=== PATIENT | female | born 1960 | race Caucasian/White ===

== ENCOUNTER 2017-11-03 02:18 | Emergency (ER) | payer OTHER, MEDICARE ==
[2017-11-03] MEDS ORDERED: Ketorolac 30 MG/ML SDV IM ONE (03:01)
--- NOTE | 2017-11-03 03:05 | EDM.PDOC ---
ED HPI GENERAL MEDICAL PROBLEM - General Chief Complaint: Back Pain or Injury Stated Complaint: BAD BACK PAIN AND INTO LEGS [id number] Time Seen by Provider: 11/03/17 02:59 Source of Information: Reports: Patient History Limitations: Reports: No Limitations - History of Present Illness INITIAL COMMENTS - FREE TEXT/NARRATIVE: long h/o sciatica was Tx with opiods but were d/c in [place] and just moved back. have been taking BRISA but with minimal relief. tonight pain worsened and unable to sleep or move freely. Lower Back Pain Score (Numeric/FACES): 10 - Related Data Allergies Allergy/AdvReac Type Severity Reaction Status Date / Time No Known Allergies Allergy Verified 11/03/17 02:26 Home Meds: Home Meds Aspirin 1 tab PO DAILY 11/03/17 [History] Cholecalciferol (Vitamin D3) [D3-2000] 1 tab PO DAILY 11/03/17 [History] DULoxetine [Cymbalta] 1 tab PO DAILY 11/03/17 [History] Gabapentin [Neurontin] 1 tab PO TID 11/03/17 [History] Levothyroxine Sodium [Synthroid] 200 mcg PO DAILY 11/03/17 [History] Levothyroxine [Synthroid] 50 mcg PO ACBREAKFAST 11/03/17 [History] Past Medical History HEENT History: Reports: Impaired Vision 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 ED EXAM,LOWER BACK PAIN/INJURY - Physical Exam Exam: See Below Exam Limited By: No Limitations General Appearance: Alert, WD/WN, Mild Distress, Other (tearful) Eye Exam: Bilateral Eye: PERRL (pupils ER @ 4mm) Ears: Hearing Grossly Normal Throat/Mouth: Normal Voice, No Airway Compromise Head: Atraumatic Neck: Non-Tender, Full Range of Motion Respiratory/Chest: No Respiratory Distress Cardiovascular: Regular Rate, Rhythm GI/Abdominal: Soft, Non-Tender Back Exam: Paraspinal Tenderness, Other (bilateral sciatica, gait limited to pain.) Neurological: Alert, No Motor/Sensory Deficits, Oriented x 3 Psychiatric: Tearful Skin Exam: Warm, Dry, Normal Color Lymphatic: No Adenopathy Course - Vital Signs Last Recorded V/S: Last Vital Signs Temp 37.0 C 11/03/17 02:29 Pulse 84 11/03/17 02:29 Resp 18 11/03/17 02:29 BP 159/85 H 11/03/17 02:29 Pulse Ox 99 11/03/17 02:29 - Orders/Labs/Meds Meds: Medications Discontinued Medications Generic Name Dose Route Start Last Admin Trade Name Freq PRN Reason Stop Dose Admin Butorphanol Tartrate 2 mg 11/03/17 03:48 11/03/17 03:58 Stadol IM 11/03/17 03:49 2 mg ONETIME ONE Administration Ketorolac Tromethamine 30 mg 11/03/17 03:01 11/03/17 03:05 Toradol IM 11/03/17 03:02 30 mg ONETIME ONE Administration Promethazine HCl 50 mg 11/03/17 03:48 11/03/17 03:59 Phenergan IM 11/03/17 03:49 50 mg ONETIME ONE Administration - Re-Assessments/Exams Free Text/Narrative Re-Assessment/Exam: 11/03/17 03:53 re-exam; s/p IM toradol = '0' Departure - Departure Time of Disposition: 04:32 Disposition: Home, Self-Care 01 Condition: Fair Clinical Impression: Bilateral lumbar radiculopathy, Sciatica associated with disorder of multiple sites of spine - Discharge Information Instructions: Back Pain, Adult, [id number] Forms: ED Department Discharge Additional Instructions: 1) rest and avoid bending lifting straining 2) try ice or heat to sore areas 3) follow up at clinic rx given; tramadol 50mg tid prn pain x 12 flexeril 10mg tid prn spasm x 12
[2017-11-03] MEDS ORDERED: Promethazine 25 MG/ML SDV IM ONE (03:48)
[2017-11-03] MEDS ORDERED: Butorphanol 2 MG/ML SDV IM ONE (03:48)
== END 2017-11-03 04:25 | disposition home or self-care (01) ==
LOC: DL.ED 02:18
DX: M54.16 Radiculopathy, lumbar region (principal); M54.42 Lumbago with sciatica, left side; M54.41 Lumbago with sciatica, right side; Z79.82 Long term (current) use of aspirin; Z79.899 Other long term (current) drug therapy
CPT/HCPCS: 96372; 99283; J0595; J1885; J2550

== ENCOUNTER 2020-04-12 11:39 | Emergency (ER) | payer MEDICARE, MEDICAID ==
[2020-04-12] MEDS ORDERED: Aspirin 81 MG Tab.Chew PO ONE (12:40)
--- NOTE | 2020-04-12 12:58 | CR ---
EXAMINATION: Chest 2V SEX: Female AGE: 59 years CLINICAL HISTORY: 59-year-old female complaining of chest pain. Interpretation: 1. Mild kyphoscoliosis, generalized osteopenia, and hypertrophic spondylosis dorsal spine. Rotation artifact. 2. 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 No pulmonary vascular congestion, cephalization of flow, alveolar edema or dependent pleural fluid accumulation. 3. No lung mass, hilar lymphadenopathy or focal lobar consolidation IE no infiltrate or atelectasis. 4. No pneumothorax or pneumomediastinum. 5. Midline tracheal bronchial airway unremarkable. No other foreign bodies. CONCLUSION: No acute cardiopulmonary abnormality.
[2020-04-12 13:24] LABS: ANION GAP 10.4 mEq/L (7-13); CHLORIDE,CL 104 mmol/L (98-107); SODIUM,NA 141 mmol/L (136-145)
--- NOTE | 2020-04-12 13:46 | EDM.PDOC ---
ED HPI GENERAL MEDICAL PROBLEM - General Chief Complaint: Chest Pain Stated Complaint: CHEST PAIN UPPER ARMS ACHE Time Seen by Provider: 04/12/20 11:45 Source of Information: Reports: Patient History Limitations: Reports: No Limitations - History of Present Illness INITIAL COMMENTS - FREE TEXT/NARRATIVE: Patient comes emergency department today from home with complaints of chest pain. This patient for the past 2 weeks has had intermittent midsternal pressure chest pain that goes into her back between her shoulder blades primarily when she is doing physical activity such as walking or climbing stairs. She does become somewhat short of breath. She has no diaphoresis with this. This midsternal pain in her chest that radiates to her back resolves when she discontinues the physical activity. She does take a baby aspirin daily. She has no pain at rest. She has no weakness dizziness lightheadedness. No palpitations. No syncope. No fever no chills. No cough or congestion. No abdominal pain nausea or vomiting. No hematuria dysuria or urinary frequency. Leg pain. No black or tarry stools. She does have a quite extensive cardiac history with a brother who of a heart attack at 58 and 2 brothers that had open heart surgery in their 50s as well. She denies any tobacco use. Denies any chest pain currently and really does not have any complaints at this time in the emergency department. - Related Data Allergies Allergy/AdvReac Type Severity Reaction Status Date / Time No Known Allergies Allergy Verified 04/12/20 12:22 Home Meds: Home Meds Aspirin 1 tab PO DAILY 11/03/17 [History] Cholecalciferol (Vitamin D3) [D3-2000] 1 tab PO DAILY 11/03/17 [History] DULoxetine [Cymbalta] 1 tab PO DAILY 11/03/17 [History] Gabapentin [Neurontin] 1 tab PO TID 11/03/17 [History] Levothyroxine Sodium [Synthroid] 200 mcg PO DAILY 11/03/17 [History] Levothyroxine [Synthroid] 50 mcg PO ACBREAKFAST 11/03/17 [History] Past Medical History HEENT History: Reports: Impaired Vision Cardiovascular History: Reports: None Respiratory History: Reports: None Gastrointestinal History: Reports: None Genitourinary History: Reports: None 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: Dysfunctional Uterine Bleeding Musculoskeletal History: Reports: Back Pain, Chronic, Other (See Below) Other Musculoskeletal History: L4-L5 back injury in 2004, left hip surgery Neurological History: Reports: None Psychiatric History: Reports: None Endocrine/Metabolic History: Reports: Hypothyroidism Hematologic History: Reports: None Immunologic History: Reports: None Oncologic (Cancer) History: Reports: None Dermatologic History: Reports: None - Infectious Disease History Infectious Disease History: Reports: None - Past Surgical History Head Surgeries/Procedures: Reports: None Female Surgical History: Reports: Hysterectomy Social & Family History - Family History Family Medical History: Noncontributory - Tobacco Use Smoking Status *Q: Never Smoker Second Hand Smoke Exposure: No - Caffeine Use Caffeine Use: Reports: Coffee - Recreational Drug Use Recreational Drug Use: No ED ROS GENERAL - Review of Systems Review Of Systems: Comprehensive ROS is negative, except as noted in HPI. ED EXAM, GENERAL - Physical Exam Exam: See Below Exam Limited By: No Limitations General Appearance: Alert, No Apparent Distress Eye Exam: Bilateral Eye: EOMI, PERRL Ears: Normal External Exam Nose: Normal Inspection Throat/Mouth: Normal Inspection Head: Atraumatic, Normocephalic Neck: Normal Inspection, Non-Tender Respiratory/Chest: No Respiratory Distress, Lungs Clear, Normal Breath Sounds, No Accessory Muscle Use, Chest Non-Tender Cardiovascular: Normal Peripheral Pulses, Regular Rate, Rhythm Peripheral Pulses: 2+: Radial (L), Radial (R), Posterior Tibial (L), Posterior Tibial (R), Dorsalis Pedis (L), Dorsalis Pedis (R) GI/Abdominal: Normal Bowel Sounds, Soft, Non-Tender (Female) Exam: Deferred Rectal (Female) Exam: Normal Exam, Normal Rectal Tone Back Exam: Normal Inspection, Full Range of Motion Extremities: Normal Inspection, Normal Range of Motion, Non-Tender, No Pedal Edema, Normal Capillary Refill Neurological: Alert, Oriented, Normal Cognition, No Motor/Sensory Deficits Psychiatric: Normal Affect, Normal Mood Skin Exam: Warm, Dry, Intact, Normal Color, No Rash EKG INTERPRETATION EKG Date: 04/12/20 Time: 12:20 Rhythm: NSR Rate (Beats/Min): 82 [place]: LAD-Left [place] Deviation P-Wave: Present QRS: Normal ST-T: Normal QT: Normal Comparison: NA - No Prior EKG Course - Vital Signs Last Recorded V/S: Last Vital Signs Temp 97.7 F 04/12/20 12:03 Pulse 80 04/12/20 12:03 Resp 18 04/12/20 12:03 BP 152/69 H 04/12/20 12:03 Pulse Ox 95 04/12/20 12:03 - Orders/Labs/Meds Labs: Laboratory Tests 04/12/20 04/12/20 Range/Units 12:53 12:53 WBC 8.6 (5.0-10.0) 10^3/uL RBC 4.88 (4.2-5.4) 10^6/uL Hgb 14.2 (12.0-16.0) g/dL Hct 43.8 (37.0-47.0) % MCV 89.8 (80-100) fL MCH 29.1 (27.0-34.0) pg MCHC 32.4 L (33.0-35.0) g/dL Plt Count 232 (150-450) 10^3/uL Neut % (Auto) 66.3 (42.2-75.2) % Lymph % (Auto) 24.3 (20.5-50.1) % [place] % (Auto) 7.5 (2-8) % Eos % (Auto) 1.3 (1.0-3.0) % Baso % (Auto) 0.6 (0.0-1.0) % Sodium 141 (136-145) mmol/L Potassium 3.4 L (3.5-5.1) mmol/L Chloride 104 (98-107) mmol/L Carbon Dioxide 30 (21-32) mmol/L Anion Gap 10.4 (7-13) mEq/L BUN 18 (7-18) mg/dL Creatinine 0.91 (0.55-1.02) mg/dL Est Cr Clr Drug Dosing 68.71 mL/min Estimated GFR (MDRD) > 60 BUN/Creatinine Ratio 19.8 (No establ ref range) Glucose 156 H (74-99) mg/dL Calcium 9.1 (8.5-10.1) mg/dL Total Bilirubin 0.4 (0.2-1.0) mg/dL AST 41 H (15-37) U/L ALT 50 (14-59) U/L Alkaline Phosphatase 96 (46-116) U/L Troponin I 0.749 H* (0.000-0.056) ng/mL Total Protein 7.2 (6.4-8.2) g/dL Albumin 3.4 (3.4-5.0) g/dL Globulin 3.8 Albumin/Globulin Ratio 0.9 Meds: Medications Discontinued Medications Generic Name Dose Route Start Last Admin Trade Name Traceq PRN Reason Stop Dose Admin Aspirin 243 mg 04/12/20 12:40 04/12/20 12:57 Aspirin PO 04/12/20 12:41 243 mg ONETIME ONE Administration - Radiology Interpretation Free Text/Narrative:: Chest x-ray negative per radiology. - Re-Assessments/Exams Free Text/Narrative Re-Assessment/Exam: 04/12/20 The patient was given 243 mg aspirin to bring her to a total of 324 mg for the day. EKG is rather unremarkable. No ST elevation or depression when reviewed extemporaneously by myself. She does have a mild elevation in her troponin at 0.749. Her laboratory evaluation is rather unremarkable. This is really the sequelae of angina with ACS and elevated troponin NSTEMI. I spoke with [facility] and they are closed to this type of patient at this time. With these concerns I called and spoke with Dr. Benavides at [facility] in [place]. HPI ER COURSE findings and concerns were relayed to him. No heparin at this time. I discussed the plan of care with the patient. She is comfortable with this plan and her questions answered. Departure - Departure Time of Disposition: 13:45 Disposition: DC/Tfer to Acute Hospital 02 Reason for Transfer *Q: Other Clinical Impression: NSTEMI (non-ST elevated myocardial infarction) Referrals: Lori Marie NP [Primary Care Provider] - Forms: ED Department Discharge Sepsis Event Note (ED) - Evaluation Sepsis Screening Result: No Definite Risk - Focused Exam Vital Signs: Vital Signs Temp Pulse Resp BP Pulse Ox 04/12/20 12:03 97.7 F 80 18 152/69 H 95
== END 2020-04-12 14:49 ==
LOC: DL.ED 11:39
DX: I21.4 Non-ST elevation (NSTEMI) myocardial infarction (principal); E03.9 Hypothyroidism, unspecified; Z79.82 Long term (current) use of aspirin; Z79.899 Other long term (current) drug therapy
CPT/HCPCS: 36415; 71046; 80053; 84484; 85025; 93005; 93010; 99284; 99285; A9270

== ENCOUNTER 2020-06-16 14:54 | Emergency (ER) | payer MEDICARE, MEDICAID ==
--- NOTE | 2020-06-16 15:42 | EDM.PDOC ---
ED HPI GENERAL MEDICAL PROBLEM - General Chief Complaint: Chest Pain Stated Complaint: CHEST PAINS Time Seen by Provider: 06/16/20 15:37 Source of Information: Reports: Patient, RN, RN Notes Reviewed History Limitations: Reports: No Limitations - History of Present Illness INITIAL COMMENTS - FREE TEXT/NARRATIVE: Patient presents to the ED via personal vehicle with complaints of chest pain. She reports the pain began yesterday evening and has maintained over that time. She describes the pain as sharp, stabbing in nature and is localized to the midline chest; it does not radiate. She states she took one Nitro tab at approximately 1300 with slight improvement in pain; she currently rates her pain at a 9 on a verbal 0 to 10 scale. She does report a history of cardiac events, including a NSTEMI in March 2020 which resulted in three stents performed at [facility]. She is currently taking Aspirin 81mg. She attests to headache and slight shortness of breath. She denies fever, shaking chills, recent illness, palpitations, dyspepsia, nausea, vomiting, or diarrhea. She denies recent COVID infection and has not been in contact with any person with a known active COVID infection. Mid-Sternal Chest Pain Score (Numeric/FACES): 9 - Related Data Allergies Allergy/AdvReac Type Severity Reaction Status Date / Time No Known Allergies Allergy Verified 06/16/20 15:08 Home Meds: Home Meds Aspirin 81 mg PO DAILY 11/03/17 [History] Cholecalciferol (Vitamin D3) [D3-2000] 1 tab PO DAILY 11/03/17 [History] Levothyroxine 150 mcg PO DAILY 04/29/20 [History] Sertraline [Zoloft] 150 mg PO DAILY 04/29/20 [History] Ticagrelor [Brilinta] 90 mg PO BID 04/29/20 [History] atorvaSTATin [Lipitor] 40 mg PO DAILY 04/29/20 [History] lisinopriL [Lisinopril] 10 mg PO DAILY 04/29/20 [History] Ascorbic Acid [C-1000] 1,000 mg PO DAILY 06/16/20 [History] Lisinopril/Hydrochlorothiazide [Lisinopril-Hctz 10-12.5 mg Tab] 1 tab PO DAILY 06/16/20 [History] Nitroglycerin [Nitrostat] 0.4 mg SL ASDIRECTED PRN 06/16/20 [History] estradioL [Estradiol] 10 mcg PO DAILY 06/16/20 [History] traMADol [Ultram] 50 mg PO Q8H PRN 06/16/20 [History] Past Medical History HEENT History: Reports: Impaired Vision Cardiovascular History: Reports: ID, Stents Respiratory History: Reports: None Gastrointestinal History: Reports: None Genitourinary History: Reports: None 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: Dysfunctional Uterine Bleeding Musculoskeletal History: Reports: Back Pain, Chronic, Other (See Below) Other Musculoskeletal History: L4-L5 back injury in 2003, left hip surgery Neurological History: Reports: None Psychiatric History: Reports: None Endocrine/Metabolic History: Reports: Hypothyroidism Hematologic History: Reports: None Immunologic History: Reports: None Oncologic (Cancer) History: Reports: None Dermatologic History: Reports: None - Infectious Disease History Infectious Disease History: Reports: None - Past Surgical History Head Surgeries/Procedures: Reports: None Female Surgical History: Reports: Hysterectomy Social & Family History - Family History Family Medical History: No Pertinent Family History - Tobacco Use Tobacco Use Status *Q: Never Tobacco User Second Hand Smoke Exposure: No - Caffeine Use Caffeine Use: Reports: Coffee - Recreational Drug Use Recreational Drug Use: No ED ROS GENERAL - Review of Systems Review Of Systems: Comprehensive ROS is negative, except as noted in HPI. ED EXAM, GENERAL - Physical Exam Exam: See Below Exam Limited By: No Limitations General Appearance: Alert, WD/WN, No Apparent Distress Eye Exam: Bilateral Eye: EOMI, Normal Inspection, PERRL Throat/Mouth: Normal Inspection, Normal Voice, No Airway Compromise Head: Atraumatic, Normocephalic Neck: Normal Inspection, Supple, Non-Tender, Full Range of Motion. No: Lymphadenopathy (L), Lymphadenopathy (R) Respiratory/Chest: No Respiratory Distress, Lungs Clear, Normal Breath Sounds, No Accessory Muscle Use, Chest Non-Tender Cardiovascular: Normal Peripheral Pulses, Regular Rate, Rhythm, No Edema, No Gallop, No JVD, No Murmur, No Rub Peripheral Pulses: 2+: Radial (L), Radial (R), Dorsalis Pedis (L), Dorsalis Pedis (R) GI/Abdominal: Normal Bowel Sounds, Soft, Non-Tender, No Distention, No Mass, Pelvis Stable (Female) Exam: Deferred Rectal (Female) Exam: Deferred Back Exam: Normal Inspection, Full Range of Motion, Paraspinal Tenderness. No: CVA Tenderness (L), CVA Tenderness (R) Extremities: Normal Inspection, Normal Range of Motion, Non-Tender, No Pedal Edema, Normal Capillary Refill Neurological: Alert, Oriented, CN II-XII Intact, Normal Cognition, Normal Gait, No Motor/Sensory Deficits Psychiatric: Normal Affect, Normal Mood Skin Exam: Warm, Dry, Intact, No Rash, Erythema (Flushed face). No: Ecchymosis, Mottled, Pallor, Petechiae Course - Vital Signs Last Recorded V/S: Last Vital Signs Temp 97.5 F 06/16/20 15:12 Pulse 73 06/16/20 15:12 Resp 12 06/16/20 15:12 BP 126/76 06/16/20 15:12 Pulse Ox 96 06/16/20 15:12 - Orders/Labs/Meds Labs: Laboratory Tests 06/16/20 06/16/20 06/16/20 Range/Units 15:41 15:41 15:41 WBC 8.1 (5.0-10.0) 10^3/uL RBC 4.71 (4.2-5.4) 10^6/uL Hgb 14.2 (12.0-16.0) g/dL Hct 42.8 (37.0-47.0) % MCV 90.9 (80-100) fL MCH 30.1 (27.0-34.0) pg MCHC 33.2 (33.0-35.0) g/dL Plt Count 233 (150-450) 10^3/uL Neut % (Auto) 67.2 (42.2-75.2) % Lymph % (Auto) 23.0 (20.5-50.1) % [place] % (Auto) 8.2 H (2-8) % Eos % (Auto) 1.0 (1.0-3.0) % Baso % (Auto) 0.6 (0.0-1.0) % PT 10.6 (9.0-12.0) SEC INR 1.1 (0.9-1.2) APTT 22.6 (22.0-34.0) SEC Sodium 138 (136-145) mmol/L Potassium 3.5 (3.5-5.1) mmol/L Chloride 102 (98-107) mmol/L Carbon Dioxide 26 (21-32) mmol/L Anion Gap 13.5 H (7-13) mEq/L BUN 18 (7-18) mg/dL Creatinine 0.80 (0.55-1.02) mg/dL Est Cr Clr Drug Dosing 72.72 mL/min Estimated GFR (MDRD) > 60 BUN/Creatinine Ratio 22.5 (No establ ref range) Glucose 100 H (74-99) mg/dL Lactic Acid (0.4-2.0) mmol/L Calcium 8.9 (8.5-10.1) mg/dL Total Bilirubin 0.5 (0.2-1.0) mg/dL AST 29 (15-37) U/L ALT 40 (14-59) U/L Alkaline Phosphatase 95 (46-116) U/L Troponin I < 0.017 (0.000-0.056) ng/mL Total Protein 7.1 (6.4-8.2) g/dL Albumin 3.6 (3.4-5.0) g/dL Globulin 3.5 Albumin/Globulin Ratio 1.0 12/02/20 Range/Units 15:41 WBC (5.0-10.0) 10^3/uL RBC (4.2-5.4) 10^6/uL Hgb (12.0-16.0) g/dL Hct (37.0-47.0) % MCV (80-100) fL MCH (27.0-34.0) pg MCHC (33.0-35.0) g/dL Plt Count (150-450) 10^3/uL Neut % (Auto) (42.2-75.2) % Lymph % (Auto) (20.5-50.1) % [place] % (Auto) (2-8) % Eos % (Auto) (1.0-3.0) % Baso % (Auto) (0.0-1.0) % PT (9.0-12.0) SEC INR (0.9-1.2) APTT (22.0-34.0) SEC Sodium (136-145) mmol/L Potassium (3.5-5.1) mmol/L Chloride (98-107) mmol/L Carbon Dioxide (21-32) mmol/L Anion Gap (7-13) mEq/L BUN (7-18) mg/dL Creatinine (0.55-1.02) mg/dL Est Cr Clr Drug Dosing mL/min Estimated GFR (MDRD) BUN/Creatinine Ratio (No establ ref range) Glucose (74-99) mg/dL Lactic Acid 0.9 (0.4-2.0) mmol/L Calcium (8.5-10.1) mg/dL Total Bilirubin (0.2-1.0) mg/dL AST (15-37) U/L ALT (14-59) U/L Alkaline Phosphatase (46-116) U/L Troponin I (0.000-0.056) ng/mL Total Protein (6.4-8.2) g/dL Albumin (3.4-5.0) g/dL Globulin Albumin/Globulin Ratio - Re-Assessments/Exams Free Text/Narrative Re-Assessment/Exam: 06/17/20 Cardiac workup unremarkable for acute processes. Patient states she has not been back to see her group rooms coordinator since her cardiac cath in March 2020. Patient instructed to follow up with group rooms coordinator regarding today's visit and need to further assessment/monitoring of cardiac health. Patient verbalized understanding and agreement with the plan of care. Departure - Departure Time of Disposition: 16:29 Disposition: Home, Self-Care 01 Condition: Good Clinical Impression: Angina at rest Forms: ED Department Discharge Additional Instructions: Your cardiac workup today was negative for acute processes. Follow up with your Commercial Lease Administrator at [facility] by the end of the week to discuss today's visit. Return to the emergency with any worsening chest pain or shortness of breath. Sepsis Event Note (ED) - Evaluation Sepsis Screening Result: No Definite Risk
[2020-06-16 16:14] LABS: ANION GAP 13.5 mEq/L (7-13); CHLORIDE,CL 102 mmol/L (98-107); PTT,PARTIAL THROMBOPLSTIN TIME 22.6 SEC (22.0-34.0); SODIUM,NA 138 mmol/L (136-145)
== END 2020-06-16 16:42 | disposition home or self-care (01) ==
LOC: DL.ED 14:54
DX: I20.9 Angina pectoris, unspecified (principal); E03.9 Hypothyroidism, unspecified; I25.2 Old myocardial infarction; Z95.5 Presence of coronary angioplasty implant and graft; Z79.899 Other long term (current) drug therapy
CPT/HCPCS: 36415; 80053; 83605; 84484; 85025; 85610; 85730; 93005; 99285-25

== ENCOUNTER 2020-11-09 12:40 | Emergency (ER) | payer MEDICARE, MEDICAID ==
[2020-11-09] MEDS ORDERED: GI Cocktail Oral Solution 30 ML PO ONE (13:07)
--- NOTE | 2020-11-09 13:09 | EDM.PDOC ---
ED HPI GENERAL MEDICAL PROBLEM - General Chief Complaint: Chest Pain Stated Complaint: CHEST PAINS Time Seen by Provider: 11/09/20 13:07 Source of Information: Reports: Patient, Old Records, RN, RN Notes Reviewed History Limitations: Reports: No Limitations - History of Present Illness INITIAL COMMENTS - FREE TEXT/NARRATIVE: Patient presents to the ED via personal vehicle with complaints of chest pain. The patient reports the pain began abruptly approximately two hours prior to arrival to this facility. She characterizes the pain as a sharp, burning which is localized to her mid-sternal chest. Additionally, she notes burning in her anterior throat. She attests to a history of cardiac events with a NSTEMI in March 2020 for which she received one stent. She denies a history of GERD and does not take daily PPIs. The patient reports taking one dose of Nitro immediately following the onset of chest pain which offered her no relief of pain. She denies recent illness, fever, shaking chills, palpitations, shortness of breath, nausea, vomiting, or diarrhea. She denies a history of tobacco, alcohol, or recreational drug use. She denies history of a COVID infection and has not received a vaccine for COVID. Treatments STOCK ASSOCIATE: Reports: Nitroglycerin Middle Sternum Pain Score (Numeric/FACES): 9 - Related Data Allergies Allergy/AdvReac Type Severity Reaction Status Date / Time No Known Allergies Allergy Verified 06/16/20 15:08 Home Meds: Home Meds Aspirin 81 mg PO DAILY 11/03/17 [History] Cholecalciferol (Vitamin D3) [D3-2000] 1 tab PO DAILY 11/03/17 [History] Levothyroxine 150 mcg PO DAILY 04/29/20 [History] Sertraline [Zoloft] 150 mg PO DAILY 04/29/20 [History] Ticagrelor [Brilinta] 90 mg PO BID 04/29/20 [History] atorvaSTATin [Lipitor] 40 mg PO DAILY 04/29/20 [History] Ascorbic Acid [C-1000] 1,000 mg PO DAILY 06/16/20 [History] Nitroglycerin [Nitrostat] 0.4 mg SL ASDIRECTED PRN 06/16/20 [History] estradioL [Estradiol] 10 mcg VAG .BIWEEKLY 06/16/20 [History] traMADol [Ultram] 50 mg PO Q8H PRN 06/16/20 [History] Hydrochlorothiazide/Lisinopril [Lisinopril/HCTZ 20-12.5 MG] 1 tab PO DAILY 11/09/20 [History] Metoprolol Succinate [Toprol XL] 12.5 mg PO DAILY 11/09/20 [History] Past Medical History HEENT History: Reports: Impaired Vision Cardiovascular History: Reports: [place], Stents Respiratory History: Reports: None Gastrointestinal History: Reports: None Genitourinary History: Reports: None SHANK FAKER History: Reports: Dysfunctional Uterine Bleeding Musculoskeletal History: Reports: Back Pain, Chronic, Other (See Below) Other Musculoskeletal History: L4-L5 back injury in 2004, left hip surgery Neurological History: Reports: None Psychiatric History: Reports: None Endocrine/Metabolic History: Reports: Hypothyroidism Hematologic History: Reports: None Immunologic History: Reports: None Oncologic (Cancer) History: Reports: None Dermatologic History: Reports: None - Infectious Disease History Infectious Disease History: Reports: None - Past Surgical History Head Surgeries/Procedures: Reports: None Female Surgical History: Reports: Hysterectomy Social & Family History - Family History Family Medical History: No Pertinent Family History - Caffeine Use Caffeine Use: Reports: Coffee ED ROS GENERAL - Review of Systems Review Of Systems: Comprehensive ROS is negative, except as noted in HPI. ED EXAM, GENERAL - Physical Exam Exam: See Below Exam Limited By: No Limitations General Appearance: Alert, No Apparent Distress Eye Exam: Bilateral Eye: EOMI, Normal Inspection, PERRL (3mm) Ears: Normal External Exam, Normal Canal, Hearing Grossly Normal, Normal TMs Ear Exam: Bilateral Ear: Auricle Normal, Canal Normal, TM normal Nose: Normal Inspection, Normal Mucosa, No Blood Throat/Mouth: Normal Voice, No Airway Compromise, Inflammation (Posterior oropharynx erythema) Head: Atraumatic, Normocephalic Neck: Normal Inspection, Supple, Non-Tender, Full Range of Motion. No: Lymphadenopathy (L), Lymphadenopathy (R) Respiratory/Chest: No Respiratory Distress, Lungs Clear, Normal Breath Sounds, No Accessory Muscle Use, Chest Non-Tender GI/Abdominal: Normal Bowel Sounds, Soft, Non-Tender, No Organomegaly, No Distention, No Abnormal Bruit, No Mass (Female) Exam: Deferred Rectal (Female) Exam: Deferred Back Exam: Normal Inspection, Full Range of Motion. No: CVA Tenderness (L), CVA Tenderness (R) Extremities: Normal Inspection, Normal Range of Motion, Non-Tender, Normal Capillary Refill, No Pedal Edema Neurological: Alert, Oriented, CN II-XII Intact, Normal Cognition, Normal Gait, No Motor/Sensory Deficits Psychiatric: Normal Mood, Flat Affect Skin Exam: Warm, Dry, Intact, Normal Color, No Rash, Wound/Incision (Scattered scabbed linear lesions in various stages of healing; Patient states they are from scratching). No: Diaphoretic, Ecchymosis, Erythema, Jaundice, Mottled, Pallor, Petechiae #1 Interpretation EKG Date: 11/09/20 Time: 12:53 Rhythm: NSR Rate (Beats/Min): 70 [place]: Normal P-Wave: Present QRS: Normal ST-T: Normal QT: Normal AK/PQ Interval: 0.159 Comparison: No Change EKG Interpretation Comments: NSR; No evidence of acute myocardia ischemia #2 Interpretation EKG Date: 11/09/20 Time: 17:26 Rhythm: NSR Rate (Beats/Min): 61 [place]: Normal P-Wave: Present QRS: Normal ST-T: Normal QT: Normal AK/PQ Interval: 0.18 Comparison: No Change EKG Interpretation Comments: NSR; No evidence of acute myocardial ischemia Course - Vital Signs Last Recorded V/S: Last Vital Signs Temp 96.9 F 11/09/20 12:44 Pulse 59 L 11/09/20 16:10 Resp 20 11/09/20 16:09 BP 98/57 L 11/09/20 16:10 Pulse Ox 95 11/09/20 16:10 - Orders/Labs/Meds Orders: Active Orders 24 hr Category Date Time Status CULTURE URINE [RM] Stat Lab 11/09/20 17:15 Results Labs: Laboratory Tests 11/09/20 11/09/20 11/09/20 Range/Units 13:00 13:00 13:00 WBC 8.1 (5.0-10.0) 10^3/uL RBC 4.72 (4.2-5.4) 10^6/uL Hgb 13.7 (12.0-16.0) g/dL Hct 43.4 (37.0-47.0) % MCV 91.9 (80-100) fL MCH 29.0 (27.0-34.0) pg MCHC 31.6 L (33.0-35.0) g/dL Plt Count 239 (150-450) 10^3/uL Neut % (Auto) 68.1 (42.2-75.2) % Lymph % (Auto) 22.2 (20.5-50.1) % [place] % (Auto) 6.5 (2-8) % Eos % (Auto) 2.6 (1.0-3.0) % Baso % (Auto) 0.6 (0.0-1.0) % PT 10.3 (9.0-12.0) SEC INR 1.0 (0.9-1.2) APTT 20.5 L (22.0-34.0) SEC Sodium 140 (136-145) mmol/L Potassium 3.8 (3.5-5.1) mmol/L Chloride 104 (98-107) mmol/L Carbon Dioxide 27 (21-32) mmol/L Anion Gap 12.8 (7-13) mEq/L BUN 16 (7-18) mg/dL Creatinine 0.87 (0.55-1.02) mg/dL Est Cr Clr Drug Dosing 70.97 mL/min Estimated GFR (MDRD) > 60 BUN/Creatinine Ratio 18.4 (No establ ref range) Glucose 121 H (70-99) mg/dL Lactic Acid (0.4-2.0) mmol/L Calcium 8.7 (8.5-10.1) mg/dL Magnesium 1.6 L (1.8-2.4) mg/dL Total Bilirubin 0.4 (0.2-1.0) mg/dL AST 25 (15-37) U/L ALT 43 (14-59) U/L Alkaline Phosphatase 97 (46-116) U/L Troponin I < 0.017 (0.000-0.056) ng/mL C-Reactive Protein 0.5 (0.0-0.9) mg/dL B-Natriuretic Peptide 49 (0-100) pg/ml Total Protein 7.1 (6.4-8.2) g/dL Albumin 3.4 (3.4-5.0) g/dL Globulin 3.7 Albumin/Globulin Ratio 0.9 Amylase 48 (25-115) U/L Lipase 68 L (73-393) U/L Urine Color (YELLOW) Urine Appearance (CLEAR) Urine pH (5.0-9.0) Ur Specific [place] (1.005-1.030) Urine Protein (NEGATIVE) Urine Glucose (UA) (NEGATIVE) Urine Ketones (NEGATIVE) Urine Occult Blood (NEGATIVE) Urine Nitrite (NEGATIVE) Urine Bilirubin (NEGATIVE) Urine Urobilinogen (0.2-1.0) mg/dL Ur Leukocyte Esterase (NEGATIVE) Urine RBC /HPF Urine WBC (0-5/HPF) /HPF Ur Epithelial Cells (NOT SEEN) /HPF Urine Bacteria (0-FEW/HPF) /HPF Urine Mucus (NOT SEEN) /LPF Urine Opiates Screen (NEGATIVE) Ur Oxycodone Screen (NEGATIVE) Urine Methadone Screen (NEGATIVE) Ur Barbiturates Screen (NEGATIVE) U Tricyclic Antidepress (NEGATIVE) Ur Phencyclidine Scrn (NEGATIVE) Ur Amphetamine Screen (NEGATIVE) U Methamphetamines Scrn (NEGATIVE) Urine MDMA Screen (NEGATIVE) U Benzodiazepines Scrn (NEGATIVE) Urine Cocaine Screen (NEGATIVE) U Marijuana (THC) Screen (NEGATIVE) Ethyl Alcohol < 3 (0) mg/dL 11/09/20 11/09/20 11/09/20 Range/Units 13:00 17:05 17:15 WBC (5.0-10.0) 10^3/uL RBC (4.2-5.4) 10^6/uL Hgb (12.0-16.0) g/dL Hct (37.0-47.0) % MCV (80-100) fL MCH (27.0-34.0) pg MCHC (33.0-35.0) g/dL Plt Count (150-450) 10^3/uL Neut % (Auto) (42.2-75.2) % Lymph % (Auto) (20.5-50.1) % [place] % (Auto) (2-8) % Eos % (Auto) (1.0-3.0) % Baso % (Auto) (0.0-1.0) % PT (9.0-12.0) SEC INR (0.9-1.2) APTT (22.0-34.0) SEC Sodium (136-145) mmol/L Potassium (3.5-5.1) mmol/L Chloride (98-107) mmol/L Carbon Dioxide (21-32) mmol/L Anion Gap (7-13) mEq/L BUN (7-18) mg/dL Creatinine (0.55-1.02) mg/dL Est Cr Clr Drug Dosing mL/min Estimated GFR (MDRD) BUN/Creatinine Ratio (No establ ref range) Glucose (70-99) mg/dL Lactic Acid 1.5 (0.4-2.0) mmol/L Calcium (8.5-10.1) mg/dL Magnesium (1.8-2.4) mg/dL Total Bilirubin (0.2-1.0) mg/dL AST (15-37) U/L ALT (14-59) U/L Alkaline Phosphatase (46-116) U/L Troponin I < 0.017 (0.000-0.056) ng/mL C-Reactive Protein (0.0-0.9) mg/dL B-Natriuretic Peptide (0-100) pg/ml Total Protein (6.4-8.2) g/dL Albumin (3.4-5.0) g/dL Globulin Albumin/Globulin Ratio Amylase (25-115) U/L Lipase (73-393) U/L Urine Color Yellow (YELLOW) Urine Appearance Slightly cloudy (CLEAR) Urine pH 5.5 (5.0-9.0) Ur Specific [place] 1.015 (1.005-1.030) Urine Protein Negative (NEGATIVE) Urine Glucose (UA) Negative (NEGATIVE) Urine Ketones Negative (NEGATIVE) Urine Occult Blood Negative (NEGATIVE) Urine Nitrite Negative (NEGATIVE) Urine Bilirubin Negative (NEGATIVE) Urine Urobilinogen 0.2 (0.2-1.0) mg/dL Ur Leukocyte Esterase Small H (NEGATIVE) Urine RBC 0-5 /HPF Urine WBC 10-20 H (0-5/HPF) /HPF Ur Epithelial Cells Few (NOT SEEN) /HPF Urine Bacteria Occasional (0-FEW/HPF) /HPF Urine Mucus Few H (NOT SEEN) /LPF Urine Opiates Screen (NEGATIVE) Ur Oxycodone Screen (NEGATIVE) Urine Methadone Screen (NEGATIVE) Ur Barbiturates Screen (NEGATIVE) U Tricyclic Antidepress (NEGATIVE) Ur Phencyclidine Scrn (NEGATIVE) Ur Amphetamine Screen (NEGATIVE) U Methamphetamines Scrn (NEGATIVE) Urine MDMA Screen (NEGATIVE) U Benzodiazepines Scrn (NEGATIVE) Urine Cocaine Screen (NEGATIVE) U Marijuana (THC) Screen (NEGATIVE) Ethyl Alcohol (0) mg/dL 11/09/20 Range/Units 17:15 WBC (5.0-10.0) 10^3/uL RBC (4.2-5.4) 10^6/uL Hgb (12.0-16.0) g/dL Hct (37.0-47.0) % MCV (80-100) fL MCH (27.0-34.0) pg MCHC (33.0-35.0) g/dL Plt Count (150-450) 10^3/uL Neut % (Auto) (42.2-75.2) % Lymph % (Auto) (20.5-50.1) % [place] % (Auto) (2-8) % Eos % (Auto) (1.0-3.0) % Baso % (Auto) (0.0-1.0) % PT (9.0-12.0) SEC INR (0.9-1.2) APTT (22.0-34.0) SEC Sodium (136-145) mmol/L Potassium (3.5-5.1) mmol/L Chloride (98-107) mmol/L Carbon Dioxide (21-32) mmol/L Anion Gap (7-13) mEq/L BUN (7-18) mg/dL Creatinine (0.55-1.02) mg/dL Est Cr Clr Drug Dosing mL/min Estimated GFR (MDRD) BUN/Creatinine Ratio (No establ ref range) Glucose (70-99) mg/dL Lactic Acid (0.4-2.0) mmol/L Calcium (8.5-10.1) mg/dL Magnesium (1.8-2.4) mg/dL Total Bilirubin (0.2-1.0) mg/dL AST (15-37) U/L ALT (14-59) U/L Alkaline Phosphatase (46-116) U/L Troponin I (0.000-0.056) ng/mL C-Reactive Protein (0.0-0.9) mg/dL B-Natriuretic Peptide (0-100) pg/ml Total Protein (6.4-8.2) g/dL Albumin (3.4-5.0) g/dL Globulin Albumin/Globulin Ratio Amylase (25-115) U/L Lipase (73-393) U/L Urine Color (YELLOW) Urine Appearance (CLEAR) Urine pH (5.0-9.0) Ur Specific [place] (1.005-1.030) Urine Protein (NEGATIVE) Urine Glucose (UA) (NEGATIVE) Urine Ketones (NEGATIVE) Urine Occult Blood (NEGATIVE) Urine Nitrite (NEGATIVE) Urine Bilirubin (NEGATIVE) Urine Urobilinogen (0.2-1.0) mg/dL Ur Leukocyte Esterase (NEGATIVE) Urine RBC /HPF Urine WBC (0-5/HPF) /HPF Ur Epithelial Cells (NOT SEEN) /HPF Urine Bacteria (0-FEW/HPF) /HPF Urine Mucus (NOT SEEN) /LPF Urine Opiates Screen Negative (NEGATIVE) Ur Oxycodone Screen Negative (NEGATIVE) Urine Methadone Screen Negative (NEGATIVE) Ur Barbiturates Screen Negative (NEGATIVE) U Tricyclic Antidepress Negative (NEGATIVE) Ur Phencyclidine Scrn Negative (NEGATIVE) Ur Amphetamine Screen Negative (NEGATIVE) U Methamphetamines Scrn Negative (NEGATIVE) Urine MDMA Screen Negative (NEGATIVE) U Benzodiazepines Scrn Negative (NEGATIVE) Urine Cocaine Screen Negative (NEGATIVE) U Marijuana (THC) Screen Negative (NEGATIVE) Ethyl Alcohol (0) mg/dL Meds: Medications Discontinued Medications Generic Name Dose Route Start Last Admin Trade Name Mikal PRN Reason Stop Dose Admin Al Hydroxide/Mg Hydroxide 30 ml 11/09/20 13:07 11/09/20 13:18 Gi Cocktail Oral Solution 30 Ml PO 11/09/20 13:08 30 ml ONETIME ONE Administration Famotidine 20 mg 11/09/20 14:10 11/09/20 15:39 Famotidine 20 Mg/2 Ml Sdv IVPUSH 11/09/20 14:11 20 mg ONETIME ONE Administration Magnesium Sulfate 2 gm in 50 mls @ 25 mls/hr 11/09/20 14:06 11/09/20 15:43 Magnesium Sulfate In Water 2 Gm/50 Ml IV 11/09/20 16:05 25 mls/hr ONETIME ONE Administration Pantoprazole Sodium 40 mg 11/09/20 14:10 11/09/20 15:39 Pantoprazole 40 Mg Vial IVPUSH 11/09/20 14:11 40 mg ONETIME ONE Administration - Re-Assessments/Exams Free Text/Narrative Re-Assessment/Exam: 11/09/20 EKG NSR with no evidence of ischemia. Troponin WNL. Will not give Nitro as patient's SBP 110s-120s. GI cocktail administered. CBC unremarkable for acute processes; no evidence of infection or anemia. CMP unremarkable for acute processes; electrolytes, kidney function, and liver function appropriate. Mag low at 1.6 Tox screen and ETOH negative. Discussed findings of examination, lab work, and imaging with patient. Will place patient in extended care stay and repeat Troponin and EKG. Patient states improvement in chest pain; reduced from a 10 to a 6. Will administer Pepcid 20mg and Omeprazole 40mg. Repeat Troponin WNL and repeat EKG NSR with no evidence of ischemia. Patient states pain to chest is completely gone following Pepcid and Omeprazole. Will treat GERD-like symptoms with 14 day course omeprazole. Patient instructed to follow up with primary care provider following course. Red flag signs and symptoms which would warrant reevaluation reviewed. Patient verbalized understanding and agreement with the plan of care. Departure - Departure Time of Disposition: 18:15 Disposition: Home, Self-Care 01 Condition: Good Clinical Impression: Atypical chest pain, Hypomagnesemia Gastroesophageal reflux disease Qualifiers: Esophagitis presence: without esophagitis Qualified Code(s): K21.9 - Gastro- esophageal reflux disease without esophagitis - Discharge Information Instructions: Food Choices for Gastroesophageal Reflux Disease, Adult, [id number], Gastroesophageal Reflux Disease, Adult Forms: ED Department Discharge Additional Instructions: Rx: omeprazole 1.) Follow up with your primary care provider in two weeks, following course of omeprazole. 2.) Drink plenty of water to stay hydrated. 3.) You may take an anti-heartburn medication in addition to the omeprazole should chest pain return. 4.) Return to the emergency department with any persistent chest pain that does not reduce with medications. Sepsis Event Note (ED) - Evaluation Sepsis Screening Result: No Definite Risk - My Orders Last 24 Hours: My Active Orders 11/09/20 17:15 CULTURE URINE [RM] Stat - Assessment/Plan Last 24 Hours: My Active Orders 11/09/20 17:15 CULTURE URINE [RM] Stat
[2020-11-09 13:32] LABS: ANION GAP 12.8 mEq/L (7-13); CHLORIDE,CL 104 mmol/L (98-107); PTT,PARTIAL THROMBOPLSTIN TIME 20.5 SEC (22.0-34.0); SODIUM,NA 140 mmol/L (136-145)
[2020-11-09] MEDS ORDERED: Magnesium Sulfate/Water 2 GM/50 ML BAG IV ONE (14:06)
[2020-11-09] MEDS ORDERED: Famotidine 20 MG/2 ML SDV IVPUSH ONE (14:10)
[2020-11-09] MEDS ORDERED: Pantoprazole 40 MG Vial IVPUSH ONE (14:10)
--- NOTE | 2020-11-09 14:27 | CR ---
EXAMINATION: Chest 1V Frontal SEX: Female AGE: 60 years CLINICAL HISTORY: 60-year-old obese female with chest pain comparison CXR 12 April 2020. Interpretation: Scoliosis and rotational artifact. External monitoring specialist leads. Normal cardiac silhouette unchanged except for position and film technique since 12 April 2020. No new pulmonary vascular congestion, cephalization of flow, alveolar edema or dependent pleural fluid accumulation (effusions). No new lung mass, hilar lymphadenopathy or focal lobar infiltrate/atelectasis. No alveolar consolidation or peripheral interstitial "groundglass" lung densities. No pneumothorax or pneumomediastinum. No free subdiaphragmatic air. CONCLUSION: No acute new cardiopulmonary abnormality.
== END 2020-11-09 18:38 | disposition home or self-care (01) ==
LOC: DL.ED 12:40
DX: K21.9 Gastro-esophageal reflux disease without esophagitis (principal); E83.42 Hypomagnesemia; I25.2 Old myocardial infarction; E03.9 Hypothyroidism, unspecified; Z79.82 Long term (current) use of aspirin; Z79.899 Other long term (current) drug therapy; Z95.5 Presence of coronary angioplasty implant and graft
CPT/HCPCS: 36415; 71045; 80053; 80305-QW; 80307; 81001; 82150; 83605; 83690; 83735; 83880; 84484; 85025; 85610; 85730; 86140; 87086; 93005; 93010; 96365; 96366; 96375; 99284; 99285-25; A9270-GY; C9113; J3475; J3490

== ENCOUNTER 2021-01-11 09:49 | Emergency (ER) | payer MEDICARE, MEDICAID ==
--- NOTE | 2021-01-11 10:09 | EDM.PDOC ---
ED HPI GENERAL MEDICAL PROBLEM - General Stated Complaint: CHEST PAIN Time Seen by Provider: 01/11/21 10:07 Source of Information: Reports: Patient, Old Records, RN, RN Notes Reviewed History Limitations: Reports: No Limitations - History of Present Illness INITIAL COMMENTS - FREE TEXT/NARRATIVE: Fatemeh is a 60 y/o female with a history of NSTEMI with stenting x3 who presents to the ED via personal vehicle with complaints of chest pain. The patient reports she noticed her pain shortly upon wakening about an hour and a half ago. She characterizes the pain as sharp and notes it radiates into her back and into her bilateral arms. Her pain was a 10 at time of onset, but currently rates it at a 7. She has taken one dose of Nitro, but did not experience immediate relief from that. She denies recent illness, fever, shaking chills, cough, sore throat, palpitations, shortness of breath, vomiting, or diarrhea. She does attest to mild nausea. She is a former smoker with a quit date in 1999; she denies recreational drug or alcohol use. Chest Pain Score (Numeric/FACES): 10 - Related Data Allergies Allergy/AdvReac Type Severity Reaction Status Date / Time No Known Allergies Allergy Verified 01/11/21 10:20 Home Meds: Home Meds Aspirin 81 mg PO DAILY 11/03/17 [History] Cholecalciferol (Vitamin D3) [D3-2000] 1 tab PO DAILY 11/03/17 [History] Levothyroxine 150 mcg PO DAILY 04/29/20 [History] Sertraline [Zoloft] 150 mg PO DAILY 04/29/20 [History] Ticagrelor [Brilinta] 90 mg PO BID 04/29/20 [History] atorvaSTATin [Lipitor] 40 mg PO DAILY 04/29/20 [History] Ascorbic Acid [C-1000] 1,000 mg PO DAILY 06/16/20 [History] Nitroglycerin [Nitrostat] 0.4 mg SL ASDIRECTED PRN 06/16/20 [History] estradioL [Estradiol] 10 mcg VAG .BIWEEKLY 06/16/20 [History] traMADol [Ultram] 50 mg PO Q8H PRN 06/16/20 [History] Hydrochlorothiazide/Lisinopril [Lisinopril/HCTZ 20-12.5 MG] 1 tab PO DAILY 10/15 02/02 [History] Metoprolol Succinate [Toprol XL] 12.5 mg PO DAILY 11/09/20 [History] Past Medical History HEENT History: Reports: Impaired Vision Cardiovascular History: Reports: NE, Stents Other Cardiovascular History: NSTEMI 04/12/2020. 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 Musculoskeletal History: Reports: Back Pain, Chronic, Other (See Below) Other Musculoskeletal History: L4-L5 back injury in 2004, left hip surgery Neurological History: Reports: None Psychiatric History: Reports: None Endocrine/Metabolic History: Reports: Hypothyroidism Hematologic History: Reports: None Immunologic History: Reports: None Oncologic (Cancer) History: Reports: None Dermatologic History: Reports: None - Infectious Disease History Infectious Disease History: Reports: None - Past Surgical History Head Surgeries/Procedures: Reports: None Female Surgical History: Reports: Hysterectomy Social & Family History - Family History Family Medical History: No Pertinent Family History - Caffeine Use Caffeine Use: Reports: Coffee ED ROS GENERAL - Review of Systems Review Of Systems: Comprehensive ROS is negative, except as noted in HPI. ED EXAM, GENERAL - Physical Exam Exam: See Below Exam Limited By: No Limitations General Appearance: Alert, No Apparent Distress Eye Exam: Bilateral Eye: EOMI, Normal Inspection, PERRL (3mm) Ears: Normal External Exam, Normal Canal, Hearing Grossly Normal, Normal TMs Ear Exam: Bilateral Ear: Auricle Normal, Canal Normal, TM normal Nose: Normal Inspection, Normal Mucosa, No Blood Throat/Mouth: Normal Inspection, Normal Oropharynx, Normal Voice, No Airway Compromise Head: Atraumatic, Normocephalic Neck: Normal Inspection, Supple, Non-Tender, Full Range of Motion Respiratory/Chest: No Respiratory Distress, Lungs Clear, Normal Breath Sounds, No Accessory Muscle Use, Chest Non-Tender Cardiovascular: Normal Peripheral Pulses, Regular Rate, Rhythm, No Edema, No Gallop, No JVD, No Murmur, No Rub Peripheral Pulses: 2+: Radial (L), Radial (R), Dorsalis Pedis (L), Dorsalis Pedis (R) GI/Abdominal: Normal Bowel Sounds, Soft, Non-Tender, No Distention, No Abnormal Bruit, No Mass, Pelvis Stable Back Exam: Normal Inspection, Full Range of Motion Extremities: Normal Inspection, Normal Range of Motion, Non-Tender, No Pedal Edema, Normal Capillary Refill Neurological: Alert, Oriented, CN II-XII Intact, Normal Cognition, Normal Gait, No Motor/Sensory Deficits Psychiatric: Normal Affect, Normal Mood Skin Exam: Warm, Dry, Intact, Normal Color, No Rash #1 Interpretation EKG Date: 01/11/21 Time: 10:04 Rhythm: Other (Sinus Bradycardia) Rate (Beats/Min): 59 Nada: Normal P-Wave: Present QRS: Normal ST-T: Normal QT: Normal OR/PQ Interval: 0.161 Comparison: No Change EKG Interpretation Comments: SB; No evidence of acute myocardial ischemia Course - Vital Signs Last Recorded V/S: Last Vital Signs Temp 97.4 F 01/11/21 10:17 Pulse 60 01/11/21 10:17 Resp 13 01/11/21 10:17 BP 146/80 H 01/11/21 10:17 Pulse Ox 98 01/11/21 10:17 - Orders/Labs/Meds Orders: Active Orders 24 hr Category Date Time Status CULTURE URINE [RM] Stat Lab 01/11/21 10:35 Received Labs: Laboratory Tests 01/11/21 01/11/21 01/11/21 Range/Units 10:08 10:08 10:08 WBC 8.4 (5.0-10.0) 10^3/uL RBC 4.90 (4.2-5.4) 10^6/uL Hgb 14.5 (12.0-16.0) g/dL Hct 44.8 (37.0-47.0) % MCV 91.4 (80-100) fL MCH 29.6 (27.0-34.0) pg MCHC 32.4 L (33.0-35.0) g/dL Plt Count 257 (150-450) 10^3/uL Neut % (Auto) 68.5 (42.2-75.2) % Lymph % (Auto) 21.9 (20.5-50.1) % [place] % (Auto) 6.9 (2-8) % Eos % (Auto) 2.0 (1.0-3.0) % Baso % (Auto) 0.7 (0.0-1.0) % Sodium 143 (136-145) mmol/L Potassium 4.0 (3.5-5.1) mmol/L Chloride 105 (98-107) mmol/L Carbon Dioxide 26 (21-32) mmol/L Anion Gap 16.0 H (7-13) mEq/L BUN 20 H (7-18) mg/dL Creatinine 0.90 (0.55-1.02) mg/dL Est Cr Clr Drug Dosing 61.45 mL/min Estimated GFR (MDRD) > 60 BUN/Creatinine Ratio 22.2 (No establ ref range) Glucose 115 H (70-99) mg/dL Lactic Acid 0.8 (0.4-2.0) mmol/L Calcium 8.9 (8.5-10.1) mg/dL Magnesium 1.9 (1.8-2.4) mg/dL Total Bilirubin 0.6 (0.2-1.0) mg/dL AST 26 (15-37) U/L ALT 44 (14-59) U/L Alkaline Phosphatase 102 (46-116) U/L Troponin I High Sens 7 (<=51) pg/mL B-Natriuretic Peptide 47 (0-100) pg/ml Total Protein 7.1 (6.4-8.2) g/dL Albumin 3.5 (3.4-5.0) g/dL Globulin 3.6 Albumin/Globulin Ratio 1.0 Amylase (25-115) U/L Lipase (73-393) U/L Urine Color (YELLOW) Urine Appearance (CLEAR) Urine pH (5.0-9.0) Ur Specific [place] (1.005-1.030) Urine Protein (NEGATIVE) Urine Glucose (UA) (NEGATIVE) Urine Ketones (NEGATIVE) Urine Occult Blood (NEGATIVE) Urine Nitrite (NEGATIVE) Urine Bilirubin (NEGATIVE) Urine Urobilinogen (0.2-1.0) mg/dL Ur Leukocyte Esterase (NEGATIVE) U Hyaline Cast (Auto) Urine RBC /HPF Urine WBC (0-5/HPF) /HPF Ur Epithelial Cells (NOT SEEN) /HPF Urine Bacteria (0-FEW/HPF) /HPF Urine Mucus (NOT SEEN) /LPF Urine Opiates Screen (NEGATIVE) Ur Oxycodone Screen (NEGATIVE) Urine Methadone Screen (NEGATIVE) Ur Barbiturates Screen (NEGATIVE) U Tricyclic Antidepress (NEGATIVE) Ur Phencyclidine Scrn (NEGATIVE) Ur Amphetamine Screen (NEGATIVE) U Methamphetamines Scrn (NEGATIVE) Urine MDMA Screen (NEGATIVE) U Benzodiazepines Scrn (NEGATIVE) Urine Cocaine Screen (NEGATIVE) U Marijuana (THC) Screen (NEGATIVE) 01/11/21 01/11/21 01/11/21 Range/Units 10:08 10:08 10:35 WBC (5.0-10.0) 10^3/uL RBC (4.2-5.4) 10^6/uL Hgb (12.0-16.0) g/dL Hct (37.0-47.0) % MCV (80-100) fL MCH (27.0-34.0) pg MCHC (33.0-35.0) g/dL Plt Count (150-450) 10^3/uL Neut % (Auto) (42.2-75.2) % Lymph % (Auto) (20.5-50.1) % [place] % (Auto) (2-8) % Eos % (Auto) (1.0-3.0) % Baso % (Auto) (0.0-1.0) % Sodium (136-145) mmol/L Potassium (3.5-5.1) mmol/L Chloride (98-107) mmol/L Carbon Dioxide (21-32) mmol/L Anion Gap (7-13) mEq/L BUN (7-18) mg/dL Creatinine (0.55-1.02) mg/dL Est Cr Clr Drug Dosing mL/min Estimated GFR (MDRD) BUN/Creatinine Ratio (No establ ref range) Glucose (70-99) mg/dL Lactic Acid (0.4-2.0) mmol/L Calcium (8.5-10.1) mg/dL Magnesium (1.8-2.4) mg/dL Total Bilirubin (0.2-1.0) mg/dL AST (15-37) U/L ALT (14-59) U/L Alkaline Phosphatase (46-116) U/L Troponin I High Sens (<=51) pg/mL B-Natriuretic Peptide (0-100) pg/ml Total Protein (6.4-8.2) g/dL Albumin (3.4-5.0) g/dL Globulin Albumin/Globulin Ratio Amylase 54 (25-115) U/L Lipase 65 L (73-393) U/L Urine Color Dark yellow (YELLOW) Urine Appearance Slightly cloudy (CLEAR) Urine pH 5.0 (5.0-9.0) Ur Specific [place] 1.025 (1.005-1.030) Urine Protein Negative (NEGATIVE) Urine Glucose (UA) Negative (NEGATIVE) Urine Ketones Negative (NEGATIVE) Urine Occult Blood Trace-intact H (NEGATIVE) Urine Nitrite Negative (NEGATIVE) Urine Bilirubin Negative (NEGATIVE) Urine Urobilinogen 0.2 (0.2-1.0) mg/dL Ur Leukocyte Esterase Large H (NEGATIVE) U Hyaline Cast (Auto) Rare Urine RBC 0-5 /HPF Urine WBC 10-20 H (0-5/HPF) /HPF Ur Epithelial Cells Moderate H (NOT SEEN) /HPF Urine Bacteria Moderate H (0-FEW/HPF) /HPF Urine Mucus Few H (NOT SEEN) /LPF Urine Opiates Screen (NEGATIVE) Ur Oxycodone Screen (NEGATIVE) Urine Methadone Screen (NEGATIVE) Ur Barbiturates Screen (NEGATIVE) U Tricyclic Antidepress (NEGATIVE) Ur Phencyclidine Scrn (NEGATIVE) Ur Amphetamine Screen (NEGATIVE) U Methamphetamines Scrn (NEGATIVE) Urine MDMA Screen (NEGATIVE) U Benzodiazepines Scrn (NEGATIVE) Urine Cocaine Screen (NEGATIVE) U Marijuana (THC) Screen (NEGATIVE) 01/11/21 Range/Units 10:35 WBC (5.0-10.0) 10^3/uL RBC (4.2-5.4) 10^6/uL Hgb (12.0-16.0) g/dL Hct (37.0-47.0) % MCV (80-100) fL MCH (27.0-34.0) pg MCHC (33.0-35.0) g/dL Plt Count (150-450) 10^3/uL Neut % (Auto) (42.2-75.2) % Lymph % (Auto) (20.5-50.1) % [place] % (Auto) (2-8) % Eos % (Auto) (1.0-3.0) % Baso % (Auto) (0.0-1.0) % Sodium (136-145) mmol/L Potassium (3.5-5.1) mmol/L Chloride (98-107) mmol/L Carbon Dioxide (21-32) mmol/L Anion Gap (7-13) mEq/L BUN (7-18) mg/dL Creatinine (0.55-1.02) mg/dL Est Cr Clr Drug Dosing mL/min Estimated GFR (MDRD) BUN/Creatinine Ratio (No establ ref range) Glucose (70-99) mg/dL Lactic Acid (0.4-2.0) mmol/L Calcium (8.5-10.1) mg/dL Magnesium (1.8-2.4) mg/dL Total Bilirubin (0.2-1.0) mg/dL AST (15-37) U/L ALT (14-59) U/L Alkaline Phosphatase (46-116) U/L Troponin I High Sens (<=51) pg/mL B-Natriuretic Peptide (0-100) pg/ml Total Protein (6.4-8.2) g/dL Albumin (3.4-5.0) g/dL Globulin Albumin/Globulin Ratio Amylase (25-115) U/L Lipase (73-393) U/L Urine Color (YELLOW) Urine Appearance (CLEAR) Urine pH (5.0-9.0) Ur Specific [place] (1.005-1.030) Urine Protein (NEGATIVE) Urine Glucose (UA) (NEGATIVE) Urine Ketones (NEGATIVE) Urine Occult Blood (NEGATIVE) Urine Nitrite (NEGATIVE) Urine Bilirubin (NEGATIVE) Urine Urobilinogen (0.2-1.0) mg/dL Ur Leukocyte Esterase (NEGATIVE) U Hyaline Cast (Auto) Urine RBC /HPF Urine WBC (0-5/HPF) /HPF Ur Epithelial Cells (NOT SEEN) /HPF Urine Bacteria (0-FEW/HPF) /HPF Urine Mucus (NOT SEEN) /LPF Urine Opiates Screen Negative (NEGATIVE) Ur Oxycodone Screen Negative (NEGATIVE) Urine Methadone Screen Negative (NEGATIVE) Ur Barbiturates Screen Negative (NEGATIVE) U Tricyclic Antidepress Negative (NEGATIVE) Ur Phencyclidine Scrn Negative (NEGATIVE) Ur Amphetamine Screen Negative (NEGATIVE) U Methamphetamines Scrn Negative (NEGATIVE) Urine MDMA Screen Negative (NEGATIVE) U Benzodiazepines Scrn Negative (NEGATIVE) Urine Cocaine Screen Negative (NEGATIVE) U Marijuana (THC) Screen Negative (NEGATIVE) Meds: Medications Discontinued Medications Generic Name Dose Route Start Last Admin Trade Name Freq PRN Reason Stop Dose Admin Al Hydroxide/Mg Hydroxide 30 ml 01/11/21 10:21 01/11/21 10:26 Gi Cocktail Oral Solution 30 Ml PO 01/11/21 10:22 30 ml ONETIME ONE Administration - Radiology Interpretation Free Text/Narrative:: [facility] Final Radiology Report Call: [phone] assistance Online chat: [email or web address] Name: FATEMEH VO Age: 60Years F Date: 01/11/2021 SSN: -- : [id number] Study: CR CHEST 1V FRONTAL Requesting Physician: Radha Medina Images: 1 Addl Studies: Provided Clinical History: Chest pain Contrast: Contrast Medium: Contrast Amount: Contrast Method: CONFIDENTIALITY STATEMENT This report is intended only for use by the referring physician, and only in accordance with law. If you received this in error, call [phone]. Page 1 of 1 PROCEDURE INFORMATION: Exam: XR Chest Exam date and time: 01/11/2021 11:31 AM Age: 60 years old Clinical indication: Pain; Other: Chest; Additional info: Chest pain TECHNIQUE: Imaging protocol: XR of the chest. Views: 1 view. COMPARISON: CR Chest 1V Frontal 11/09/2020 1:08 PM FINDINGS: Lungs: Unremarkable. No consolidation. Pleural spaces: Unremarkable. No pleural effusion. No pneumothorax. Heart/Mediastinum: The cardiomediastinal silhouette is stable in appearance allowing for differences in positioning. Bones/joints: Degenerative changes again involve the spine and right shoulder. IMPRESSION: No evidence for acute pulmonary disease. Thank you for allowing us to participate in the care of your patient. Dictated and Authenticated by: Raul Hodgson MD 01/11/2021 12:08 PM Central Time ([place] & [place]) - Re-Assessments/Exams Free Text/Narrative Re-Assessment/Exam: 01/11/21 EKG performed. GI cocktail administered. Patient verbalized resolution of pain following GI cocktail. Findings of examination, imaging, and lab work reviewed with patient. Will treat GERD with omeprazole. Will treat patient for UTI given persistent, and worsening leukocyte esterase, via UA. Discussed supportive cares for GERD with patient. Patient instructed to follow up with primary care provider regarding today's visit following course of omeprazole, or sooner as indicated. Red flag signs and symptoms which would warrant reevaluation reviewed. Patient verbalized understanding and agreement with the plan of care. Departure - Departure Time of Disposition: 12:13 Disposition: Home, Self-Care 01 Condition: Good Clinical Impression: GERD (gastroesophageal reflux disease) Qualifiers: Esophagitis presence: without esophagitis Qualified Code(s): K21.9 - Gastro- esophageal reflux disease without esophagitis Acute cystitis Qualifiers: Hematuria presence: with hematuria Qualified Code(s): N30.01 - Acute cystitis with hematuria Instructions: Heartburn, [id number] Referrals: Lori Marie NP [Primary Care Provider] - Forms: ED Department Discharge Additional Instructions: Rx: Macrobid Rx: omeprazole 1.) Follow up with your primary care provider following course of omeprazole, or sooner should symptoms return. 2.) Take all of your antibiotic until gone, even as symptoms improve. 3.) Drink plenty of water to stay hydrated. 4.) You may try an antacid in addition to the omeprazole, should symptoms return. TUMS, Pepcid, Zantac, etc... 5.) Return to the emergency room with any return of symptoms despite medication, shortness of breath, fever, or shaking chills. Sepsis Event Note (ED) - Focused Exam Vital Signs: Vital Signs Temp Pulse Resp BP Pulse Ox 01/11/21 10:17 97.4 F 60 13 146/80 H 98 - My Orders Last 24 Hours: My Active Orders 01/11/21 10:35 CULTURE URINE [RM] Stat - Assessment/Plan Last 24 Hours: My Active Orders 01/11/21 10:35 CULTURE URINE [RM] Stat
[2021-01-11] MEDS ORDERED: GI Cocktail Oral Solution 30 ML PO ONE (10:21)
[2021-01-11 10:36] LABS: CHLORIDE,CL 105 mmol/L (98-107); SODIUM,NA 143 mmol/L (136-145)
--- NOTE | 2021-01-11 12:08 | CR ---
PROCEDURE INFORMATION: Exam: XR Chest Exam date and time: 01/11/2021 11:31 AM Age: 60 years old Clinical indication: Pain; Other: Chest; Additional info: Chest pain TECHNIQUE: Imaging protocol: XR of the chest. Views: 1 view. COMPARISON: CR Chest 1V Frontal 11/09/2020 1:08 PM FINDINGS: Lungs: Unremarkable. No consolidation. Pleural spaces: Unremarkable. No pleural effusion. No pneumothorax. Heart/Mediastinum: The cardiomediastinal silhouette is stable in appearance allowing for differences in positioning. Bones/joints: Degenerative changes again involve the spine and right shoulder. IMPRESSION: No evidence for acute pulmonary disease.
== END 2021-01-11 12:22 | disposition home or self-care (01) ==
LOC: DL.ED 09:49
DX: K21.9 Gastro-esophageal reflux disease without esophagitis (principal); N30.01 Acute cystitis with hematuria; R00.1 Bradycardia, unspecified; I25.2 Old myocardial infarction; E03.9 Hypothyroidism, unspecified; Z79.82 Long term (current) use of aspirin; Z79.899 Other long term (current) drug therapy
CPT/HCPCS: 36415; 71045; 80053; 80305-QW; 81001; 82150; 83605; 83690; 83735; 83880; 84484; 85025; 87086; 93005; 93010; 99284; 99285-25; A9270-GY

== ENCOUNTER 2021-04-12 18:23 | Emergency (ER) | payer MEDICARE, MEDICAID ==
[2021-04-12] MEDS ORDERED: Aspirin 81 MG Tab.Chew PO ONE (19:03)
--- NOTE | 2021-04-12 19:17 | EDM.PDOC ---
ED HPI GENERAL MEDICAL PROBLEM - General Chief Complaint: Chest Pain Stated Complaint: CHEST PAIN / RIGHT ARM PAIN Time Seen by Provider: 04/12/21 19:16 Source of Information: Reports: Patient, RN, RN Notes Reviewed History Limitations: Reports: No Limitations - History of Present Illness INITIAL COMMENTS - FREE TEXT/NARRATIVE: Fatemeh is a 60 y/o female who presents to the ED via personal vehicle with complaints of midsternal chest pain. The patient reports her pain began abruptly 30 minutes ago and radiated into her right arm. She characterized the pain as a 10/10 stabbing pain for which she took one dose of Nitro. Additionally, she notes shortness of breath and headache. She denies recent illness, fever, shaking chills, cough, sore throat, vision changes, dizziness, palpitations, or dyspepsia. 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 The patient denies tobacco, alcohol, or recreational drug use. She states she is currently not experiencing any pain to her chest. 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: Nitroglycerin chest Pain Score (Numeric/FACES): 8 - Related Data Allergies Allergy/AdvReac Type Severity Reaction Status Date / Time No Known Allergies Allergy Verified 04/12/21 19:20 Home Meds: Home Meds Aspirin 81 mg PO DAILY 11/03/17 [History] Cholecalciferol (Vitamin D3) [D3-2000] 1 tab PO DAILY 11/03/17 [History] Levothyroxine 150 mcg PO DAILY 04/29/20 [History] Sertraline [Zoloft] 150 mg PO DAILY 04/29/20 [History] Ticagrelor [Brilinta] 90 mg PO BID 04/29/20 [History] atorvaSTATin [Lipitor] 40 mg PO DAILY 04/29/20 [History] Ascorbic Acid [C-1000] 1,000 mg PO DAILY 06/16/20 [History] Nitroglycerin [Nitrostat] 0.4 mg SL ASDIRECTED PRN 06/16/20 [History] estradioL [Estradiol] 10 mcg VAG .BIWEEKLY 06/16/20 [History] traMADol [Ultram] 50 mg PO Q8H PRN 06/16/20 [History] Hydrochlorothiazide/Lisinopril [Lisinopril/HCTZ 20-12.5 MG] 1 tab PO DAILY 11/09/20 [History] Metoprolol Succinate [Toprol XL] 12.5 mg PO DAILY 11/09/20 [History] Past Medical History HEENT History: Reports: Impaired Vision Cardiovascular History: Reports: AR, Stents Other Cardiovascular History: NSTEMI 04/12/2020. 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: Dysfunctional Uterine Bleeding Musculoskeletal History: Reports: Back Pain, Chronic, Other (See Below) Other Musculoskeletal History: L4-L5 back injury in 2004, left hip surgery Neurological History: Reports: None Psychiatric History: Reports: None Endocrine/Metabolic History: Reports: Diabetes, Type II, Hypothyroidism Hematologic History: Reports: None Immunologic History: Reports: None Oncologic (Cancer) History: Reports: None Dermatologic History: Reports: None - Infectious Disease History Infectious Disease History: Reports: None - Past Surgical History Head Surgeries/Procedures: Reports: None HEENT Surgical History: Reports: None Respiratory Surgical History: Reports: None Female Surgical History: Reports: Hysterectomy Social & Family History - Family History Family Medical History: No Pertinent Family History - Caffeine Use Caffeine Use: Reports: Coffee ED ROS GENERAL - Review of Systems Review Of Systems: Comprehensive ROS is negative, except as noted in HPI. ED EXAM, GENERAL - Physical Exam Exam: See Below Exam Limited By: No Limitations General Appearance: Alert, No Apparent Distress Eye Exam: Right Eye: Conjunctival Injection (Scleral hemorrhage to medial globe), Bilateral Eye: EOMI, PERRL (3mm) Ears: Normal External Exam, Normal Canal, Hearing Grossly Normal, Normal TMs Ear Exam: Bilateral Ear: Auricle Normal, Canal Normal, TM normal Nose: Normal Inspection, Normal Mucosa, No Blood Throat/Mouth: Normal Inspection, Normal Oropharynx, Normal Voice, No Airway Compromise Head: Atraumatic, Normocephalic Neck: Normal Inspection, Supple, Non-Tender, Full Range of Motion. No: Lymphadenopathy (L), Lymphadenopathy (R) Respiratory/Chest: No Respiratory Distress, Lungs Clear, Normal Breath Sounds, No Accessory Muscle Use, Chest Non-Tender. No: Crackles, Rales, Rhonchi, Wheez ing, Stridor Cardiovascular: Normal Peripheral Pulses, Regular Rate, Rhythm, No Gallop, No JVD, No Murmur, No Rub. No: No Edema Peripheral Pulses: 2+: Radial (L), Radial (R) GI/Abdominal: Normal Bowel Sounds, Soft, Non-Tender, No Distention, No Abnormal Bruit, No Mass, Pelvis Stable (Female) Exam: Deferred Rectal (Female) Exam: Deferred Back Exam: Normal Inspection, Full Range of Motion Extremities: Normal Inspection, Normal Range of Motion, Non-Tender, Normal Capillary Refill, Pedal Edema (Trace pitting, bilaterally) Neurological: Alert, Oriented, CN II-XII Intact, Normal Cognition, Normal Gait, No Motor/Sensory Deficits Psychiatric: Normal Mood, Flat Affect Skin Exam: Warm, Dry, Intact, Normal Color, No Rash. No: Cyanosis, Jaundice, Mottled, Pallor Lymphatic: No Adenopathy #1 Interpretation EKG Date: 04/12/21 Time: 19:06 Rhythm: Other (Sinus Bradycardia) Rate (Beats/Min): 57 [place]: Normal P-Wave: Present QRS: Normal ST-T: Normal QT: Normal Comparison: No Change EKG Interpretation Comments: SB; s-wave in III; No evidence of acute myocardial ischemia #2 Interpretation EKG Date: 04/12/21 Time: 23:19 Rhythm: Other (Sinus Bradycardia) Rate (Beats/Min): 57 [place]: Normal P-Wave: Present QRS: Normal ST-T: Normal QT: Normal ME/PQ Interval: 0.164 Comparison: No Change EKG Interpretation Comments: SB; No evidence of acute myocardial ischemia #3 Interpretation EKG Date: 04/13/21 Time: 04:43 Rhythm: Other (Sinus bradycardia) Rate (Beats/Min): 57 [place]: Normal P-Wave: Present QRS: Normal ST-T: Normal QT: Normal ME/PQ Interval: 0.16 Comparison: No Change EKG Interpretation Comments: SB; q-wave in III; No evidence of acute myocardial ischemia Course - Vital Signs Last Recorded V/S: Last Vital Signs Temp 97.4 F 04/12/21 23:56 Pulse 67 04/12/21 23:56 Resp 16 04/12/21 23:56 BP 124/75 04/12/21 23:56 Pulse Ox 93 L 04/12/21 23:56 - Orders/Labs/Meds Labs: Laboratory Tests 04/12/21 04/12/21 04/12/21 Range/Units 19:16 19:16 19:16 WBC 8.3 (5.0-10.0) 10^3/uL RBC 4.97 (4.2-5.4) 10^6/uL Hgb 14.4 (12.0-16.0) g/dL Hct 45.1 (37.0-47.0) % MCV 90.7 (80-100) fL MCH 29.0 (27.0-34.0) pg MCHC 31.9 L (33.0-35.0) g/dL Plt Count 228 (150-450) 10^3/uL Neut % (Auto) 65.6 (42.2-75.2) % Lymph % (Auto) 24.8 (20.5-50.1) % [place] % (Auto) 7.1 (2-8) % Eos % (Auto) 1.9 (1.0-3.0) % Baso % (Auto) 0.6 (0.0-1.0) % PT 10.4 (9.0-12.0) SEC INR 1.0 (0.9-1.2) APTT (22.0-34.0) SEC Sodium 140 (136-145) mmol/L Potassium 4.1 (3.5-5.1) mmol/L Chloride 102 (98-107) mmol/L Carbon Dioxide 30 (21-32) mmol/L Anion Gap 12.1 (7-13) mEq/L BUN 17 (7-18) mg/dL Creatinine 0.93 (0.55-1.02) mg/dL Est Cr Clr Drug Dosing 68.69 mL/min Estimated GFR (MDRD) > 60 BUN/Creatinine Ratio 18.3 (No establ ref range) Glucose 95 (70-99) mg/dL Calcium 9.0 (8.5-10.1) mg/dL Total Bilirubin 0.4 (0.2-1.0) mg/dL AST 26 (15-37) U/L ALT 33 (14-59) U/L Alkaline Phosphatase 104 (46-116) U/L Troponin I High Sens (<=51) pg/mL Total Protein 7.8 (6.4-8.2) g/dL Albumin 3.8 (3.4-5.0) g/dL Globulin 4.0 Albumin/Globulin Ratio 0.9 SARS-CoV-2 RNA (LEX) (NEGATIVE) 04/12/21 04/12/21 04/13/21 Range/Units 19:16 23:14 04:40 WBC (5.0-10.0) 10^3/uL RBC (4.2-5.4) 10^6/uL Hgb (12.0-16.0) g/dL Hct (37.0-47.0) % MCV (80-100) fL MCH (27.0-34.0) pg MCHC (33.0-35.0) g/dL Plt Count (150-450) 10^3/uL Neut % (Auto) (42.2-75.2) % Lymph % (Auto) (20.5-50.1) % [place] % (Auto) (2-8) % Eos % (Auto) (1.0-3.0) % Baso % (Auto) (0.0-1.0) % PT (9.0-12.0) SEC INR (0.9-1.2) APTT (22.0-34.0) SEC Sodium (136-145) mmol/L Potassium (3.5-5.1) mmol/L Chloride (98-107) mmol/L Carbon Dioxide (21-32) mmol/L Anion Gap (7-13) mEq/L BUN (7-18) mg/dL Creatinine (0.55-1.02) mg/dL Est Cr Clr Drug Dosing mL/min Estimated GFR (MDRD) BUN/Creatinine Ratio (No establ ref range) Glucose (70-99) mg/dL Calcium (8.5-10.1) mg/dL Total Bilirubin (0.2-1.0) mg/dL AST (15-37) U/L ALT (14-59) U/L Alkaline Phosphatase (46-116) U/L Troponin I High Sens 108 H* 1645 H* 3733 H* (<=51) pg/mL Total Protein (6.4-8.2) g/dL Albumin (3.4-5.0) g/dL Globulin Albumin/Globulin Ratio SARS-CoV-2 RNA (LEX) (NEGATIVE) 04/13/21 04/13/21 Range/Units 04:40 06:52 WBC (5.0-10.0) 10^3/uL RBC (4.2-5.4) 10^6/uL Hgb (12.0-16.0) g/dL Hct (37.0-47.0) % MCV (80-100) fL MCH (27.0-34.0) pg MCHC (33.0-35.0) g/dL Plt Count (150-450) 10^3/uL Neut % (Auto) (42.2-75.2) % Lymph % (Auto) (20.5-50.1) % [place] % (Auto) (2-8) % Eos % (Auto) (1.0-3.0) % Baso % (Auto) (0.0-1.0) % PT 10.7 (9.0-12.0) SEC INR 1.1 (0.9-1.2) APTT 46.1 H (22.0-34.0) SEC Sodium (136-145) mmol/L Potassium (3.5-5.1) mmol/L Chloride (98-107) mmol/L Carbon Dioxide (21-32) mmol/L Anion Gap (7-13) mEq/L BUN (7-18) mg/dL Creatinine (0.55-1.02) mg/dL Est Cr Clr Drug Dosing mL/min Estimated GFR (MDRD) BUN/Creatinine Ratio (No establ ref range) Glucose (70-99) mg/dL Calcium (8.5-10.1) mg/dL Total Bilirubin (0.2-1.0) mg/dL AST (15-37) U/L ALT (14-59) U/L Alkaline Phosphatase (46-116) U/L Troponin I High Sens (<=51) pg/mL Total Protein (6.4-8.2) g/dL Albumin (3.4-5.0) g/dL Globulin Albumin/Globulin Ratio SARS-CoV-2 RNA (LEX) Negative (NEGATIVE) Meds: Medications Discontinued Medications Generic Name Dose Route Start Last Admin Trade Name Freq PRN Reason Stop Dose Admin Aspirin 324 mg 04/12/21 19:03 04/12/21 19:19 Aspirin 81 Mg Tab.Chew PO 04/12/21 19:04 324 mg ONETIME ONE Administration Heparin Sodium/Sodium Chloride 25,000 units in 500 mls @ 19.677 mls/hr 04/12/21 21:30 04/12/21 21:32 Heparin 25,000 Units In 1/2 Ns 500 Ml IV 9 units/kg/hr TITRATE DEVIN 19.677 mls/hr Administration Protocol 9 UNITS/KG/HR Morphine Sulfate 2 mg 04/13/21 00:03 04/13/21 00:18 Morphine 2 Mg/Ml Syringe IVPUSH 04/13/21 00:04 2 mg ONETIME ONE Administration - Radiology Interpretation Free Text/Narrative:: [facility] Final Radiology Report Call: [phone] assistance Online chat: [email or web address] Name: FATEMEH VO Age: 60Years F Date: 04/12/2021 SSN: -- : 1960 Study: CR CHEST 1V FRONTAL Requesting Physician: Harsha Gustafson Images: 1 Addl Studies: Provided Clinical History: chest pain Contrast: Contrast Medium: Contrast Amount: Contrast Method: CONFIDENTIALITY STATEMENT This report is intended only for use by the referring physician, and only in accordance with law. If you received this in error, call [phone]. Page 1 of 1 PROCEDURE INFORMATION: Exam: XR Chest Exam date and time: 04/12/2021 7:12 PM Age: 60 years old Clinical indication: Pain; Left-sided; Additional info: Chest pain TECHNIQUE: Imaging protocol: XR of the chest. Views: 1 view. COMPARISON: CR Chest 1V Frontal 01/11/2021 11:31 AM FINDINGS: Lungs: Unremarkable. No consolidation. Pleural spaces: Unremarkable. No pleural effusion. No pneumothorax. Heart/Mediastinum: Unremarkable. No cardiomegaly. Bones/joints: Unremarkable. IMPRESSION: No acute findings. Thank you for allowing us to participate in the care of your patient. Dictated and Authenticated by: Nick Grant MD 04/12/2021 7:53 PM Central Time ([place] & [place]) - Re-Assessments/Exams Free Text/Narrative Re-Assessment/Exam: 04/12/21 Patient states she is not currently experiencing any chest pain. CXR, lab, and imaging performed. Troponin elevated at 108, will trend. Heparin gtt initiated while trending Troponin. Findings of examination, lab work, and imaging reviewed with patient. Patient verbalized understanding and agreement with the plan of care. Repeat EKG and Troponin obtained, Troponin elevated at 1645. Heparin gtt remains infusing. [facility], [facility], [facility], [facility], [facility], and [facility] called by documentation writer with no beds available. No beds available in this facility. Patient currently on [facility] waiting list for transfer. Patient states pain to midsternal chest, Morphine 2mg IVP administered. Updated patient on lab values and plan of care. She verbalized understanding and agreement. Case discussed with Dr. Coats, hospitalist at [facility], who kindly accepted patient for transfer. Plan of care reviewed with patient who verbalized understanding and agreement with the plan of care. Departure - Departure Time of Disposition: 07:01 Disposition: DC/Tfer to Acute Hospital 02 Reason for Transfer *Q: Primary PCI Indicated Condition: Fair Clinical Impression: NSTEMI (non-ST elevated myocardial infarction) Referrals: PCP,None [Primary Care Provider] - Forms: ED Department Discharge, Interfacility Transfer [facility] Sepsis Event Note (ED) - Evaluation Sepsis Screening Result: No Definite Risk
[2021-04-12 19:39] LABS: ANION GAP 12.1 mEq/L (7-13); CHLORIDE,CL 102 mmol/L (98-107); SODIUM,NA 140 mmol/L (136-145)
--- NOTE | 2021-04-12 19:53 | CR ---
PROCEDURE INFORMATION: Exam: XR Chest Exam date and time: 04/12/2021 7:12 PM Age: 60 years old Clinical indication: Pain; Left-sided; Additional info: Chest pain TECHNIQUE: Imaging protocol: XR of the chest. Views: 1 view. COMPARISON: CR Chest 1V Frontal 01/11/2021 11:31 AM FINDINGS: Lungs: Unremarkable. No consolidation. Pleural spaces: Unremarkable. No pleural effusion. No pneumothorax. Heart/Mediastinum: Unremarkable. No cardiomegaly. Bones/joints: Unremarkable. IMPRESSION: No acute findings.
[2021-04-12] MEDS ORDERED: Heparin Sodium/0.45% NaCl 25,000 UNITS/500 ML BAG IV SCH (21:30)
[2021-04-13] MEDS ORDERED: Morphine 2 MG/ML SYRINGE IVPUSH ONE (00:03)
[2021-04-13 07:33] LABS: PTT,PARTIAL THROMBOPLSTIN TIME 46.1 SEC (22.0-34.0)
== END 2021-04-13 07:29 ==
LOC: DL.ED 18:23
DX: I21.4 Non-ST elevation (NSTEMI) myocardial infarction (principal); R00.1 Bradycardia, unspecified; E11.9 Type 2 diabetes mellitus without complications; E03.9 Hypothyroidism, unspecified; Z79.82 Long term (current) use of aspirin; Z79.899 Other long term (current) drug therapy; Z20.822 Contact with and (suspected) exposure to COVID-19
CPT/HCPCS: 36415; 71045; 80053; 84484; 85025; 85610; 85730; 93005; 96365; 96366; 96375; 99285; A9270; J1644; J2270; U0002

== ENCOUNTER 2021-07-24 19:26 | Emergency (ER) | payer MEDICARE, MEDICAID ==
[2021-07-24] MEDS: Aspirin 81 MG Tab.Chew PO ONE (20:25)
--- NOTE | 2021-07-24 20:29 | EDM.PDOC ---
ED HPI GENERAL MEDICAL PROBLEM - General Chief Complaint: Chest Pain Stated Complaint: CHEST PAIN AND ARM PAIN Time Seen by Provider: 07/24/21 20:20 Source of Information: Reports: Patient History Limitations: Reports: No Limitations - History of Present Illness INITIAL COMMENTS - FREE TEXT/NARRATIVE: This 60 yo female patient reports to the ED with generalized chest pain that radiates into her shoulders and down both arms. The patient reports her symptoms started today at 1600 and have not been relieved by Nitro x 2 or a warm shower. The patient reports she also fell while attempting to get into a pick-up today (happened at about 1430 this afternoon). The patient reports her symptoms are similar to her symptoms when she had a previous heart attack. 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 Onset: Today Onset Date: 07/24/21 Onset Time: 16:00 Duration: Constant Location: Reports: Chest, Back, Upper Extremity, Left, Upper Extremity, Right Quality: Reports: Ache Severity: Moderate Improves with: Reports: None Worsens with: Reports: None Context: Reports: Other Associated Symptoms: Reports: Chest Pain Treatments FIXED INTEREST DEALER: Reports: Nitroglycerin Mid-Sternal Chest Pain Score (Numeric/FACES): 8 - Related Data Allergies Allergy/AdvReac Type Severity Reaction Status Date / Time No Known Allergies Allergy Verified 07/24/21 19:45 Home Meds: Home Meds Aspirin 81 mg PO DAILY 11/03/17 [History] Cholecalciferol (Vitamin D3) [D3-2000] 1 tab PO DAILY 11/03/17 [History] Levothyroxine 150 mcg PO DAILY 04/29/20 [History] Sertraline [Zoloft] 150 mg PO DAILY 04/29/20 [History] atorvaSTATin [Lipitor] 40 mg PO DAILY 04/29/20 [History] Ascorbic Acid [C-1000] 1,000 mg PO DAILY 06/16/20 [History] Nitroglycerin [Nitrostat] 0.4 mg SL ASDIRECTED PRN 06/16/20 [History] estradioL [Estradiol] 10 mcg VAG .BIWEEKLY 06/16/20 [History] traMADol [Ultram] 50 mg PO Q8H PRN 06/16/20 [History] Hydrochlorothiazide/Lisinopril [Lisinopril/HCTZ 20-12.5 MG] 1 tab PO DAILY 11/09/20 [History] Metoprolol Succinate [Toprol XL] 12.5 mg PO DAILY 11/09/20 [History] Past Medical History HEENT History: Reports: Impaired Vision Cardiovascular History: Reports: IN, Stents Other Cardiovascular History: NSTEMI 04/12/2020. Respiratory History: Reports: None Gastrointestinal History: Reports: None Genitourinary History: Reports: None [employer] TE[employer]COMM[employer]ICATION[employer] SPECIALIST History: Reports: Dysfunctional Uterine Bleeding Musculoskeletal History: Reports: Back Pain, Chronic, Other (See Below) Other Musculoskeletal History: L4-L5 back injury in 2004, left hip surgery Neurological History: Reports: None Psychiatric History: Reports: None Endocrine/Metabolic History: Reports: Diabetes, Type II, Hypothyroidism Hematologic History: Reports: None Immunologic History: Reports: None Oncologic (Cancer) History: Reports: None Dermatologic History: Reports: None - Infectious Disease History Infectious Disease History: Reports: None - Past Surgical History Head Surgeries/Procedures: Reports: None HEENT Surgical History: Reports: None Respiratory Surgical History: Reports: None Female Surgical History: Reports: Hysterectomy Musculoskeletal Surgical History: Reports: Hip Replacement Other Musculoskeletal Surgeries/Procedures:: left hip Social & Family History - Family History Family Medical History: No Pertinent Family History - Tobacco Use Tobacco Use Status *Q: Never Tobacco User Second Hand Smoke Exposure: No - Caffeine Use Caffeine Use: Reports: Coffee - Recreational Drug Use Recreational Drug Use: No ED ROS GENERAL - Review of Systems Review Of Systems: Comprehensive ROS is negative, except as noted in HPI. ED EXAM, GENERAL - Physical Exam Exam: See Below Exam Limited By: No Limitations General Appearance: Alert, WD/WN, Moderate Distress Eye Exam: Bilateral Eye: EOMI, Normal Inspection, PERRL Ears: Normal External Exam, Normal Canal, Hearing Grossly Normal, Normal TMs Nose: Normal Inspection, Normal Mucosa, No Blood Throat/Mouth: Normal Inspection, Normal Lips, Normal Teeth, Normal Gums, Normal Oropharynx, Normal Voice, No Airway Compromise Head: Atraumatic, Normocephalic Neck: Normal Inspection, Supple, Non-Tender, Full Range of Motion Respiratory/Chest: No Respiratory Distress, Lungs Clear, Normal Breath Sounds, No Accessory Muscle Use, Chest Non-Tender Cardiovascular: Normal Peripheral Pulses, Regular Rate, Rhythm, No Edema, No Gallop, No JVD, No Murmur, No Rub GI/Abdominal: Normal Bowel Sounds, Soft, Non-Tender, No Organomegaly, No Distention, No Abnormal Bruit, No Mass (Female) Exam: Deferred Rectal (Female) Exam: Deferred Back Exam: Normal Inspection, Full Range of Motion, NT Extremities: Normal Inspection, Normal Range of Motion, Non-Tender, Normal Capillary Refill, No Pedal Edema Neurological: Alert, Oriented, CN II-XII Intact, Normal Cognition, Normal Gait, Normal Reflexes, No Motor/Sensory Deficits Psychiatric: Normal Affect, Normal Mood Skin Exam: Warm, Dry, Intact, Normal Color, No Rash Lymphatic: No Adenopathy #1 Interpretation EKG Date: 07/24/21 Time: 19:56 Rhythm: NSR Rate (Beats/Min): 71 [place]: Normal P-Wave: Present QRS: Normal ST-T: Other (Elevation in aVR, depression in II, III, aVF and V3) QT: Normal Comparison: Change From Previous EKG #2 Interpretation EKG Date: 07/24/21 Time: 21:32 Rhythm: NSR Rate (Beats/Min): 62 [place]: Normal P-Wave: Present QRS: Normal ST-T: Other (ST changes as described earlier without changes after drips were started) QT: Normal Comparison: No Change (from today's EKG) Course - Vital Signs Last Recorded V/S: Last Vital Signs Temp 97.9 F 07/24/21 19:34 Pulse 64 07/24/21 21:18 Resp 18 07/24/21 21:18 BP 144/87 H 07/24/21 21:18 Pulse Ox 96 07/24/21 21:18 - Orders/Labs/Meds Orders: Active Orders 24 hr Category Date Time Status Heparin Sodium/0.45% NaCl [Heparin 25,000 Units in 1/2 Med 07/24/21 20:44 Active NS 500 ML] 25,000 units in 500 ml IV ONETIME Nitroglycerin/D5W [Nitroglycerin 25 MG/D5W 250 ML] Med 07/24/21 21:00 Active 25 mg in 250 ml IV TITRATE Medication Orders Heparin Sodium/Sodium Chloride (Heparin 25,000 Units In 1/2 Ns 500 Ml) 25,000 units in 500 mls @ 30.275 mls/hr IV ONETIME ONE Stop: 07/25/21 13:14 Last Admin: 07/24/21 20:54 Dose: 14 units/kg/hr, 30.275 mls/hr Documented by: JACQUELINE Cosigned by: [email or web address] Nitroglycerin/Dextrose (Nitroglycerin 25 Mg/D5w 250 Ml) 25 mg in 250 mls @ 3 mls/hr IV TITRATE DEVIN; Protocol Last Admin: 07/24/21 21:10 Dose: 5 mcg/min, 3 mls/hr Documented by: JACQUELINE Labs: Laboratory Tests 07/24/21 07/24/21 07/24/21 Range/Units 20:05 20:05 20:05 WBC 13.2 H (5.0-10.0) 10^3/uL RBC 4.84 (4.2-5.4) 10^6/uL Hgb 13.7 (12.0-16.0) g/dL Hct 44.1 (37.0-47.0) % MCV 91.1 (80-100) fL MCH 28.3 (27.0-34.0) pg MCHC 31.1 L (33.0-35.0) g/dL Plt Count 380 D (150-450) 10^3/uL Neut % (Auto) 74.3 (42.2-75.2) % Lymph % (Auto) 17.2 L (20.5-50.1) % Craig % (Auto) 6.8 (2-8) % Eos % (Auto) 1.2 (1.0-3.0) % Baso % (Auto) 0.5 (0.0-1.0) % PT (9.0-12.0) SEC INR (0.9-1.2) Sodium 142 (136-145) mmol/L Potassium 3.7 (3.5-5.1) mmol/L Chloride 101 (98-107) mmol/L Carbon Dioxide 28 (21-32) mmol/L Anion Gap 16.7 H (7-13) mEq/L BUN 25 H (7-18) mg/dL Creatinine 0.94 (0.55-1.02) mg/dL Est Cr Clr Drug Dosing 65.68 mL/min Estimated GFR (MDRD) > 60 BUN/Creatinine Ratio 26.6 (No establ ref range) Glucose 99 (70-99) mg/dL Calcium 9.2 (8.5-10.1) mg/dL Total Bilirubin 0.3 (0.2-1.0) mg/dL AST 26 (15-37) U/L ALT 30 (14-59) U/L Alkaline Phosphatase 133 H (46-116) U/L Troponin I High Sens 453 H* (<=51) pg/mL Total Protein 8.2 (6.4-8.2) g/dL Albumin 3.9 (3.4-5.0) g/dL Globulin 4.3 Albumin/Globulin Ratio 0.9 Influenza Type A RNA Negative (NEGATIVE) Influenza Type B RNA Negative (NEGATIVE) SARS-CoV-2 RNA (LEX) Negative (NEGATIVE) 07/24/21 Range/Units 20:05 WBC (5.0-10.0) 10^3/uL RBC (4.2-5.4) 10^6/uL Hgb (12.0-16.0) g/dL Hct (37.0-47.0) % MCV (80-100) fL MCH (27.0-34.0) pg MCHC (33.0-35.0) g/dL Plt Count (150-450) 10^3/uL Neut % (Auto) (42.2-75.2) % Lymph % (Auto) (20.5-50.1) % Craig % (Auto) (2-8) % Eos % (Auto) (1.0-3.0) % Baso % (Auto) (0.0-1.0) % PT 10.3 (9.0-12.0) SEC INR 1.0 (0.9-1.2) Sodium (136-145) mmol/L Potassium (3.5-5.1) mmol/L Chloride (98-107) mmol/L Carbon Dioxide (21-32) mmol/L Anion Gap (7-13) mEq/L BUN (7-18) mg/dL Creatinine (0.55-1.02) mg/dL Est Cr Clr Drug Dosing mL/min Estimated GFR (MDRD) BUN/Creatinine Ratio (No establ ref range) Glucose (70-99) mg/dL Calcium (8.5-10.1) mg/dL Total Bilirubin (0.2-1.0) mg/dL AST (15-37) U/L ALT (14-59) U/L Alkaline Phosphatase (46-116) U/L Troponin I High Sens (<=51) pg/mL Total Protein (6.4-8.2) g/dL Albumin (3.4-5.0) g/dL Globulin Albumin/Globulin Ratio Influenza Type A RNA (NEGATIVE) Influenza Type B RNA (NEGATIVE) SARS-CoV-2 RNA (LEX) (NEGATIVE) Meds: Medications Generic Name Dose Route Start Last Admin Trade Name Freq PRN Reason Stop Dose Admin Heparin Sodium/Sodium Chloride 25,000 units in 500 mls @ 30.275 mls/hr 07/24/21 20:44 07/24/21 20:54 Heparin 25,000 Units In 1/2 Ns 500 Ml IV 07/25/21 13:14 14 units/kg/hr ONETIME ONE 30.275 mls/hr Administration 14 UNITS/KG/HR Nitroglycerin/Dextrose 25 mg in 250 mls @ 3 mls/hr 07/24/21 21:00 07/24/21 21:10 Nitroglycerin 25 Mg/D5w 250 Ml IV 5 mcg/min TITRATE DEVIN 3 mls/hr Administration Protocol 5 MCG/MIN Discontinued Medications Generic Name Dose Route Start Last Admin Trade Name Freq PRN Reason Stop Dose Admin Aspirin 324 mg 07/24/21 20:13 07/24/21 20:25 Aspirin 81 Mg Tab.Chew PO 07/24/21 20:14 324 mg ONETIME ONE Administration Heparin Sodium (Porcine) 4,000 units 07/24/21 20:43 07/24/21 20:48 Heparin Sodium 5,000 Units/Ml Vial IVPUSH 07/24/21 20:44 4,000 units .BOLUS ONE Administration Metoprolol Tartrate 25 mg 07/24/21 20:54 07/24/21 21:16 Metoprolol Tartrate 25 Mg Tab PO 07/24/21 20:55 25 mg ONETIME ONE Administration Morphine Sulfate 2 mg 07/24/21 20:47 07/24/21 20:52 Morphine 2 Mg/Ml Syringe IVPUSH 07/24/21 20:48 2 mg ONETIME ONE Administration Departure - Departure Time of Disposition: 21:37 Disposition: DC/Tfer to Acute Hospital 02 Reason for Transfer *Q: Other Condition: Fair Clinical Impression: NSTEMI (non-ST elevated myocardial infarction) Forms: Interfacility Transfer EMTALA Sepsis Event Note (ED) - Focused Exam Vital Signs: Vital Signs Temp Pulse Pulse Resp BP BP Pulse Ox 07/24/21 21:18 64 18 144/87 H 96 07/24/21 21:16 61 144/87 H 07/24/21 19:34 97.9 F 84 18 132/81 95 - My Orders Last 24 Hours: My Active Orders 07/24/21 20:44 Heparin Sodium/0.45% NaCl [Heparin 25,000 Units in 1/2 NS 500 ML] 25,000 units in 500 ml IV ONETIME 07/24/21 21:00 Nitroglycerin/D5W [Nitroglycerin 25 MG/D5W 250 ML] 25 mg in 250 ml IV TITRATE - Assessment/Plan Last 24 Hours: My Active Orders 07/24/21 20:44 Heparin Sodium/0.45% NaCl [Heparin 25,000 Units in 1/2 NS 500 ML] 25,000 units in 500 ml IV ONETIME 07/24/21 21:00 Nitroglycerin/D5W [Nitroglycerin 25 MG/D5W 250 ML] 25 mg in 250 ml IV TITRATE
--- NOTE | 2021-07-24 20:32 | CR ---
PROCEDURE INFORMATION: Exam: XR Chest Exam date and time: 07/24/2021 8:12 PM Age: 60 years old Clinical indication: Other: Chest pain; Additional info: Cp TECHNIQUE: Imaging protocol: XR of the chest. Views: 1 view. COMPARISON: CR Chest 1V Frontal 04/12/2021 7:12 PM FINDINGS: Lungs: Atelectasis left lower lobe, stable. Remaining lungs are clear. Pleural spaces: Unremarkable. No pleural effusion. No pneumothorax. Heart/Mediastinum: Unremarkable. No cardiomegaly. Bones/joints: The spine demonstrates moderate degenerative changes. IMPRESSION: No acute findings.
[2021-07-24 20:34] LABS: ANION GAP 16.7 mEq/L (7-13); CHLORIDE,CL 101 mmol/L (98-107); SODIUM,NA 142 mmol/L (136-145)
[2021-07-24] MEDS: Heparin Sodium 5,000 Units/ML Vial IVPUSH ONE (20:48)
[2021-07-24 20:51] LABS: CORONAVIRUS COVID-19 NAA NEGATIVE (NEGATIVE)
[2021-07-24] MEDS: Morphine 2 MG/ML SYRINGE IVPUSH ONE (20:52)
[2021-07-24] MEDS: Heparin Sodium/0.45% NaCl 25,000 UNITS/500 ML BAG IV ONE (20:54)
[2021-07-24] MEDS: Nitroglycerin/D5W 25 MG/250 ML BOTTLE IV SCH (21:10)
[2021-07-24] MEDS: Metoprolol Tartrate 25 MG Tab PO ONE (21:16)
== END 2021-07-24 22:15 ==
LOC: DL.ED 19:26
DX: I21.4 Non-ST elevation (NSTEMI) myocardial infarction (principal); E11.9 Type 2 diabetes mellitus without complications; I25.2 Old myocardial infarction; E03.9 Hypothyroidism, unspecified; Z79.82 Long term (current) use of aspirin; Z79.899 Other long term (current) drug therapy; Z20.822 Contact with and (suspected) exposure to COVID-19
CPT/HCPCS: 0240U; 36415; 71045; 80053; 84484; 85025; 85610; 93005; 96365; 96368; 96375; 99285; A9270; J1644; J2270; J3490

== ENCOUNTER 2021-08-18 09:14 | Emergency (ER) | payer MEDICARE, MEDICAID ==
[2021-08-18 10:11] LABS: RESPIRATORY SYNCYTIAL VIR NAA NEGATIVE (NEGATIVE)
[2021-08-18 10:16] LABS: CORONAVIRUS COVID-19 NAA POSITIVE (NEGATIVE)
[2021-08-18] MEDS ORDERED: Ondansetron 4 MG Tab.DIS PO ONE (10:33)
[2021-08-18] MEDS ORDERED: Acetaminophen 500 MG Tab PO ONE (10:35)
[2021-08-18] MEDS ORDERED: Ibuprofen 800 MG Tab PO ONE (10:36)
== END 2021-08-18 11:27 | disposition home or self-care (01) ==
LOC: DL.ED 09:14
DX: U07.1 COVID-19 (principal); L03.116 Cellulitis of left lower limb; I25.10 Atherosclerotic heart disease of native coronary artery without angina pectoris; I25.2 Old myocardial infarction; E11.9 Type 2 diabetes mellitus without complications; E03.9 Hypothyroidism, unspecified; Z95.5 Presence of coronary angioplasty implant and graft; Z79.82 Long term (current) use of aspirin; Z79.899 Other long term (current) drug therapy
CPT/HCPCS: 0241U; 36415; 85025; 99284; A9270

== ENCOUNTER 2021-11-06 12:42 | Emergency (ER) | payer MEDICARE, MEDICAID ==
[2021-11-06 13:19] LABS: PTT,PARTIAL THROMBOPLSTIN TIME 22.7 SEC (22.0-34.0)
[2021-11-06 13:24] LABS: ANION GAP 9.6 mEq/L (7-13); CHLORIDE,CL 100 mmol/L (98-107); SODIUM,NA 134 mmol/L (136-145)
[2021-11-06] MEDS ORDERED: Aspirin 81 MG Tab.Chew PO ONE (13:33)
[2021-11-06] MEDS ORDERED: Iopamidol 755 Mg/ML 100 ML Bottle IVPUSH ONE (13:46)
== END 2021-11-06 15:38 | disposition home or self-care (01) ==
LOC: DL.ED 12:42
DX: R07.9 Chest pain, unspecified (principal); I25.10 Atherosclerotic heart disease of native coronary artery without angina pectoris; I25.2 Old myocardial infarction; E11.9 Type 2 diabetes mellitus without complications; E03.9 Hypothyroidism, unspecified; Z79.899 Other long term (current) drug therapy
CPT/HCPCS: 36415; 71045; 71260; 80053; 83605; 83880; 84484; 85025; 85379; 85610; 85730; 93005; 93010; 99284; 99285; A9270; Q9967